=== PATIENT | male | born 1965 | race Caucasian/White ===

== ENCOUNTER 2019-02-04 15:32 | Inpatient (IN) | payer MEDICARE, MEDICAID ==
[2019-02-04] MEDS ORDERED: Albuterol/Ipratropium NEB.SOL* Albuterol 2.5 MG/Ipratropium 0.5 MG 3 ML INH ONE (15:56)
--- NOTE | 2019-02-04 16:06 | ED ---
HPI Chest Pain - HPI Summary HPI Summary: The patient is a 53 year old M presenting to [facility] accompanied by his daughter with a chief complaint of chest pain since 1500 today and is rated a 4/10. The CP started at rest and was described as tightness, the pt initially thought it was indigestion. At 1545 the CP radiated to his L side and he became SOB. He reports that he has pain with inhalation and that he has to catch his breath while talking. He denies any nausea but states that he was diaphoretic upon arrival to the ED. The pt reports no aggravating or alleviating symptoms. The pt has a Hx of COPD and emphysema which he uses home 02 for and medications. The pt states that he took all his medications today but also reported that if this was happening at home he would use a nebulizer. The pt has a Hx of ME in 2007 and stated that this felt similar to that episode. - History of Current Complaint Chief Complaint: EDChestPainROMI Time Seen by Provider: 02/04/19 15:46 Hx Obtained From: Patient Onset/Duration: Started Hours Ago - started at 1500, Still Present, Worse Since Time of Onset: 15:00 Timing: Constant, Lasting Hours - 1 Initial Severity: Mild Current Severity: Moderate Pain Intensity: 4 Pain Scale Used: 0-10 Numeric Chest Pain Location: Left Anterior Chest Pain Radiates: Yes Chest Pain Radiates To:: Other - L side Character: Dyspnea at Exertion, Dyspnea at Orthopnea, Dyspnea at Rest, Pressure/ Squeezing Aggravating Factor(s): Nothing Alleviating Factor(s): Nothing Associated Signs and Symptoms: Positive: Chest Pain - L anterior chest, radiates to the whole L side, Shortness of Breath, Diaphoresis. Negative: Nausea Related History: Similar Episode/Dx as: - Stated the feeling was similar to a ME in 2007 - Allergy/Home Medications Allergies/Adverse Reactions: Allergies Allergy/AdvReac Type Severity Reaction Status Date / Time MS Moxifloxacin [From Avelox] Allergy Severe Anaphylatic Verified 02/04/19 16:07 Shock MS Alpha Proteinase Allergy Hives/Diff. Verified 02/04/19 16:07 Inhibitor (H... Breathing/I [From Prolastin] tching Home Medications: Home Medications Albuterol 2.5MG/3ML (0.083%)* [Ventolin 2.5 MG/3 ML NEB.DAISY*] 2.5 mg INH Q6H PRN 02/04/19 [History Confirmed 02/04/19] Atorvastatin* [Lipitor*] 40 mg PO BEDTIME 02/04/19 [History Confirmed 02/04/19] Fluticasone HFA 110 mcg(NF) [Flovent HFA 110 mcg(NF)] 2 puff INH BID 02/04/19 [ History Confirmed 02/04/19] Gabapentin CAP(*) [Neurontin 100 mg CAP(*)] 200 mg PO TID 02/04/19 [History Confirmed 02/04/19] Omeprazole CAP (NF) [Prilosec CAP* 20 MG] 20 mg PO DAILY 02/04/19 [History Confirmed 02/04/19] Roflumilast (NF) [Daliresp (NF)] 500 mcg PO DAILY 02/04/19 [History Confirmed ] Tiotropium CAP.INH* [Spiriva CAP.INH*] 1 cap.inh INH DAILY 02/04/19 [History Confirmed 02/04/19] clonazePAM TAB(*) [KlonoPIN TAB(*)] 0.25 mg PO BID PRN 02/04/19 [History Confirmed 02/04/19] metroNIDAZOLE * [Flagyl] 500 mg PO TID 02/04/19 [History Confirmed 02/04/19] PMH/Surg Hx/FS Hx/Imm Hx Previously Healthy: No Endocrine/Hematology History: Reports: Hx Diabetes - borderline Respiratory History: Reports: Hx Asthma, Hx Chronic Obstructive Pulmonary Disease (COPD) - emphysemia, Other Respiratory Problems/Disorders - alpha-1 antitrypsin deficiency - Surgical History Surgery Procedure, Year, and Place: ankle surgeries Infectious Disease History: No Infectious Disease History: Reports: Hx Hepatitis - Hep C Denies: Traveled Outside the [place] in Last 30 Days - Family History Known Family History: Positive: Cardiac Disease, Respiratory Disease - asthma - Social History Alcohol Use: None Hx Substance Use: No Substance Use Type: Reports: None Hx Tobacco Use: Yes Smoking Status (MU): Former Smoker Review of Systems Positive: Skin Diaphoresis Positive: Chest Pain - L anterior that radiates to the L side Positive: Shortness Of Breath Negative: Nausea All Other Systems Reviewed And Are Negative: Yes Physical Exam - Summary Physical Exam Summary: Appearance: The patient is well-nourished in no acute distress and in no acute pain. Skin: Confluent macular popular rash on back, excoriated in places HEENT: The head is normocephalic and atraumatic. The pupils are equal and reactive. The conjunctivae are clear and without drainage. Nares are patent and without drainage. Mouth reveals moist mucous membranes and the throat is without erythema and exudate. The external ears are intact. The ear canals are patent and without drainage. The tympanic membranes are intact. Neck: The neck is supple with full range of motion and non-tender. There are no carotid bruits. There is no neck vein distension. Respiratory: Chest tender to the L anterior portion. Lungs are reduced on the R side and not present on the L side. Pt is tachypneic Cardiovascular: Heart is tachycardic. There is no murmur or rub auscultated. There is no peripheral edema and pulses are symmetrical and equal. Abdomen: The abdomen is soft and non-tender. There are normal bowel sounds heard in all four quadrants and there is no organomegaly palpated. Musculoskeletal: There is no back tenderness noted. Extremities are non-tender with full range of motion. There is good capillary refill. There is no peripheral edema or calf tenderness elicited. Neurological: Patient is alert and oriented to person, place and time. The patient has symmetrical motor strength in all four extremities. Cranial nerves are grossly intact. Deep tendon reflexes are symmetrical and equal in all four extremities. Psychiatric: The patient has an appropriate affect and does not exhibit any anxiety or depression Triage Information Reviewed: Yes Vital Signs On Initial Exam: Initial Vitals Temp Pulse Resp BP Pulse Ox 99.3 F 97 22 113/75 99 02/04/19 15:42 02/04/19 15:42 02/04/19 15:42 02/04/19 15:42 02/04/19 15:42 Vital Signs Reviewed: Yes Diagnostics - Vital Signs Vital Signs Temp Pulse Resp BP Pulse Ox 02/04/19 15:42 99.3 F 97 22 113/75 99 - Laboratory Result Diagrams: 02/04/19 15:47 02/04/19 15:47 Lab Statement: Any lab studies that have been ordered have been reviewed, and results considered in the medical decision making process. - Radiology CXR Radiology Interpretation Completed By: Radiologist Summary of Radiographic Findings: Stigmata of advanced obstructive lung disease and emphysema. No acute pulmonary or cardiac process evident. ED physician has reviewed this report. Re-Evaluation - Re-Evaluation First Eval Re-Evaluation Time: 17:30 Change: Worse Comment: Pt stated that his pain is still present at a 7/10 and is steadily increasing to an 8/10. Pt is requesting pain medication. Second Eval Re-Evaluation Time: 18:13 Change: Improved Comment: Pt reported that the medications and fluids are helping. Pain intensity is now at a 6/10. Chest Pain Course/Dx - Course Course Of Treatment: Mr. Franklin presented with the onset of an atypical chest pain that was accompanied by shortness of breath and at least partially reproducible by palpation and breathing. He admitted that if he were at home he would take some breathing treatments. He was given breathing treatments here as his breath sounds were quite decreased. He is currently stable and his initial lab were unremarkable however the lab called us and stated that they needed to run them again as there was a problem. We're waiting for initial labs and repeat troponins. - Diagnoses Provider Diagnoses: Chest pain, COPD (chronic obstructive pulmonary disease) Discharge - Sign-Out/Discharge Documenting (check all that apply): Sign-Out Patient Signing out patient TO: Julian Hebert Receiving patient FROM: Elpidio Mendoza Patient Received Moderate/Deep Sedation with Procedure: No - Discharge Plan Condition: Stable Referrals: No Primary Care Phys,NOPCP [Medical Doctor] - - Billing Disposition and Condition Condition: STABLE - Attestation Statements Document Initiated by Scribe: Yes Documenting Scribe: Jesus Flores Provider For Whom Goldie is Documenting (Include Credential): Elpidio Mendoza MD Scribe Attestation: IJesus, scribed for Elpidio Mendoza MD on 02/04/19 at 1829. Scribe Documentation Reviewed: Yes Provider Attestation: The documentation as recorded by the Jesus renner accurately reflects the service I personally performed and the decisions made by me, lEpidio Mendoza MD Status of Scribe Document: Viewed
[2019-02-04 16:15] LABS: ABS Basophils 0.1 10^3/ul (0-0.2); ABS Lymphocytes 0.3 10^3/ul (1.0-4.8); ABS Monocytes 0.2 10^3/ul (0-0.8); ABS Neutrophils 8.4 10^3/ul (1.5-7.7); Eosinophil % 0.2 %; Hematocrit 36 % (42-52); Hemoglobin 11.5 g/dL (14.0-18.0); Lymphocyte % 3.3 %; Mean Corpuscular HGB Conc 32 g/dL (31-36); Mean Corpuscular Hemoglobin 28 pg (27-31); Mean Corpuscular Volume 85 fL (80-94); Mean Platelet Volume 7.7 fL (7.4-10.4); Platelet Count 334 10^3/uL (150-450); Red Blood Count 4.18 10^6 /uL (4.18-5.48); Red Cell Distribution Width 14 % (10-15)
[2019-02-04 16:31] LABS: Albumin 3.6 g/dL (3.2-5.2); Albumin/Globulin Ratio 1.7 (1-3); BUN/Creatinine Ratio 19.4 (8-20); C Reactive Protein 1.89 mg/L (<8.01); EGFR African American 138.2 (>60); EGFR Non-African American 114.2 (>60); Globulin 2.1 g/dL (2-4); Total Bilirubin 0.3 mg/dL (0.2-1.0); Total Protein 5.7 g/dL (6.4-8.9)
[2019-02-04 16:34] LABS: INR 1.01 (0.82-1.09)
[2019-02-04 17:04] LABS: Calcium 9.8 mg/dL (8.6-10.3); Potassium 4.2 mmol/L (3.5-5.0)
[2019-02-04] MEDS ORDERED: Ketorolac INJ* 30 MG/ML 1 ML VIAL IV PUSH ONE (17:34)
[2019-02-04] MEDS ORDERED: NS 0.9% 1000 ML** 1,000 ML IV ONE ×2 (17:34→19:15)
--- NOTE | 2019-02-04 19:11 | ED ---
Progress - Progress Note Progress Note: RECEIVING SIGN OUT FROM DR. MENDOZA AT SHIFT CHANGE PENDING REPEAT LAB RESULTS. Patient is a 53 y/o M presenting to ED c/o CP onset 1500. Re-Evaluation - Re-Evaluation First Eval Re-Evaluation Time: 17:30 Change: Worse Comment: Pt stated that his pain is still present at a 7/10 and is steadily increasing to an 8/10. Pt is requesting pain medication. Second Eval Re-Evaluation Time: 18:13 Change: Improved Comment: Pt reported that the medications and fluids are helping. Pain intensity is now at a 6/10. 0 Re-Evaluation Time: 00:00 Comment: ... 1 - KD Re-Evaluation Time: 19:21 Change: Worse Comment: Patient has SOB. He is pale. Patient was offered admission and accepted. 1 Re-Evaluation Time: 19:21 Change: Worse Comment: Patient has SOB. He is pale. Patient was offered admission and accepted. Course/Dx - Course Course Of Treatment: RECEIVING SIGN OUT FROM DR. MENDOZA AT SHIFT CHANGE PENDING LAB RESULTS. Nurses note reviewed. Ill-appearing patient with wheezing history of sick COPD having chest pain with elevated lactate. Troponin 2 is negative. Patient is not well enough To go home. He was given IV steroids and an additional liter fluids. Hospitalist have consulted and will admit. - Diagnoses Provider Diagnoses: COPD exacerbation, Chest pain - Provider Notifications Discussed Care Of Patient With: Moisés Wong - hospitalist Time Discussed With Above Provider: 19:30 Instructed by Provider To: Admit As Inpatient Discharge - Sign-Out/Discharge Documenting (check all that apply): Patient Departure - ADMIT, Receiving Sign- Out Receiving patient FROM: Elpidio Mendoza - pending labs Patient Received Moderate/Deep Sedation with Procedure: No - Discharge Plan Condition: Fair Disposition: ADMITTED TO [facility] Referrals: No Primary Care Phys,NOPCP [Medical Doctor] - - Billing Disposition and Condition Condition: FAIR Disposition: Admitted to [facility] - Attestation Statements Document Initiated by Scribe: Yes Documenting Scribe: Buddy Whiteside Provider For Whom Scribe is Documenting (Include Credential): Dr. Eusebio Diaz MD Scribe Attestation: I, Buddy Whiteside, scribed for Dr. Eusebio Diaz MD on 02/04/19 at 2142. Scribe Documentation Reviewed: Yes Provider Attestation: The documentation as recorded by the scribe, Buddy Whiteside accurately reflects the service I personally performed and the decisions made by me, Dr. Eusebio Diaz MD Status of Scribe Document: Viewed
[2019-02-04] MEDS ORDERED: methylPREDNISolone 125 MG* 2 ML VIAL IV ONE (19:20)
[2019-02-04 19:52] LABS: HIV 4th Generation Negative (Negative)
[2019-02-04] MEDS ORDERED: Albuterol/Ipratropium NEB.SOL* Albuterol 2.5 MG/Ipratropium 0.5 MG 3 ML INH PRN (20:52)
[2019-02-04] MEDS ORDERED: Acetaminophen TAB* 325 MG PO PRN (20:52)
[2019-02-04] MEDS ORDERED: Albuterol HFA INHALER* 8 gm MDI INH PRN (20:57)
[2019-02-04] MEDS ORDERED: clonazePAM TAB(*) 0.5 MG PO PRN (20:57)
[2019-02-04] MEDS ORDERED: Albuterol 2.5 MG/3 ML NEB.SOL* (0.083%) INH PRN (20:57)
[2019-02-04] MEDS ORDERED: Azithromycin 500 mg/250 ml NS 500 MG/250 ML BAG IVPB ONE (21:09)
[2019-02-04] MEDS: Atorvastatin* 40 MG TAB PO SCH (22:55)
[2019-02-04] MEDS: Gabapentin CAP(*) 100 MG PO SCH (22:55)
[2019-02-04] MEDS: Heparin VIAL(*) 5000 UNITS/ML VIAL (FIVE THOUSAND) SUBCUT SCH (22:55)
[2019-02-04] MEDS: Albuterol/Ipratropium NEB.SOL* Albuterol 2.5 MG/Ipratropium 0.5 MG 3 ML INH SCH (23:15)
--- NOTE | 2019-02-05 00:44 | HP ---
Amended report to enter cosigning physician. CC: HIEN Blanco* HISTORY AND PHYSICAL: DATE OF ADMISSION: 02/04/19 PRIMARY CARE PROVIDER: HIEN Blanco in [place], [place]. OTHER PROVIDER: Dr. Greenberg, Pulmonology in [place], [place]. ATTENDING PHYSICIAN: Dr. Wong* (dictated by Mookie Nuno, KLAUS) CHIEF COMPLAINT: 1. Chest pain. 2. Shortness of breath. HISTORY OF PRESENT ILLNESS: Mr. Franklin is a 53-year-old male with a past medical history significant for COPD, emphysema, ME in 2007 with no stent, borderline diabetes, asthma; who presented to the emergency department today on 02/04/19 with complaints of chest pain that started at 1500. The patient reported he was sitting in a hot car and started to have left-sided chest pain. He described the chest pain as tightness. He reports the pain radiated to the left arm. He reports the chest pain was 6/10. He denies associated symptoms such as nausea or diaphoresis. He reports aggravating factors include inhalation. He denies alleviating factors. He reports the pain does not increase with exertion. Given these symptoms, hospitalists were asked to evaluate for admission. While in the emergency room, the patient had a chest x-ray which was consistent with stigmata of advanced obstructive lung disease and emphysema. No acute pulmonary or cardiac process evident. The patient had an EKG, which revealed sinus tachycardia with occasional PVC. No ST changes. The patient had labs, which revealed mildly elevated lactic acid at 3.8. PAST MEDICAL HISTORY: 1. COPD, on 4 L, O2 at home. 2. Emphysema. 3. ME in 2007. The patient reports he was cath'd at this time with no stent. 4. Borderline diabetes. 5. Asthma. PAST SURGICAL HISTORY: Multiple ankle surgeries. HOME MEDICATIONS: 1. Albuterol 2 puffs inhalation q.4 to 6 hours p.r.n. 2. Klonopin 0.25 mg p.o. b.i.d. p.r.n. 3. Gabapentin 200 mg p.o. t.i.d. 4. Lipitor 40 mg p.o. at bedtime. 5. Ventolin 2.5 mg inhalation q.6 hours p.r.n. 6. Omeprazole 20 mg p.o. daily. 7. Spiriva 1 cap inhalation daily 8. Roflumilast 500 mcg p.o. daily. 9. Flovent 2 puffs inhalation b.i.d. 10. Prozac 40 mg p.o. daily. ALLERGIES: The patient has allergies to AVELOX.. FAMILY HISTORY: Mom due to COPD complications. Father due to ME at age 45. SOCIAL HISTORY: The patient is a former smoker. He reports he smoked for approximately 35 years a pack a day. The patient denies alcohol use. The patient denies drug use. The patient does not work. The patient lives with his and son. The patient is independent in his ADLs. REVIEW OF SYSTEMS: A 14-point review of systems was performed and all the pertinent positive and negative findings are in the HPI. All other symptoms are negative. PHYSICAL EXAMINATION GENERAL: Mr. Franklin is a 53-year-old male who appears to be underweight, who is sitting on the ED stretcher. Appears to be in no acute distress. Appears stated age. VITAL SIGNS: Temp 97.9, HR 68, RR 17, O2 saturation 100% on 4 L, BP 117/77. HEENT: EOMs intact. PERRLA. Oral mucosa is moist without lesions. Posterior pharynx is clear. NECK: Supple. No lymphadenopathy. RESPIRATORY: Symmetrical chest expansion. No accessory muscle use. Lungs are hunudhjsia-ta-bigqoefs diminished in aeration. No rhonchi, lesions, or rubs appreciated. CV: Regular rate and rhythm. S1, S2 present. No murmurs, rubs, or gallops. EXTREMITIES: Skin is smooth bilaterally. No edema. No clubbing or cyanosis. Pedal pulses are 2+ bilaterally. MUSCULOSKELETAL: Full range of motion. No pain or deformities. ABDOMEN: Soft, nontender. Bowel sounds are normoactive. NEURO: Awake, alert, and oriented x4. Motor strength is 5/5 in the upper and lower extremities. SKIN: Grossly intact. DIAGNOSTIC STUDIES/LABORATORY DATA: WBC 9.0, hemoglobin 11.5, hematocrit 36, platelets 334. D-dimer less than 200. Sodium 140, potassium 4.2, chloride 105 , carbon dioxide 32, BUN 14, creatinine 0.72, glucose 166, lactic acid 3.8, troponin 0.00. ASSESSMENT AND PLAN: Mr. Franklin is a 53-year-old male with a past medical history significant for chronic obstructive pulmonary disease, emphysema, myocardial infarction, diabetes, asthma; who presented to the emergency department today with chest pain and was found to possibly have a chronic obstructive pulmonary disease exacerbation. The patient will be admitted to OBV : 1. Chest pain: As mentioned above, the patient presented with chest pain. The differential includes coronary artery disease/acute coronary syndrome. As for coronary artery disease/acute coronary syndrome given the patient has had 2 troponins, both of which are negative. The patient has also had an EKG, which is within normal limits. I will continue to cycle troponin to equal [address] the patient on telemetry. Differential for chest pain includes pulmonary embolism. I have a low suspicion for pulmonary embolism as the patient 's D-dimer is less than 200. Finally, the differential diagnosis of COPD exacerbation as the patient has severely decreased aeration. The patient also has elevated lactic acid at 3.8, which could be attributed to COPD induced hypoxia. Also the differential includes pneumonia. The patient's chest x-ray did not reveal any findings for pneumonia. The patient is also not febrile and not tachycardic. I will currently hold off on obtaining additional imaging or adding antibiotics to the patient's regimen unless the patient exhibits more signs or symptoms of pneumonia. Finally, I am also concerned for possible lung malignancy. The patient has a smoking history. The patient reports unexplained weight loss of greater than 11 pounds in 1 month. Once again I am going to hold off on ordering any more detailed imaging at this time given the current possible chronic obstructive pulmonary disease exacerbation, but I will have a low threshold for ordering a CT. 2. Chronic obstructive pulmonary disease exacerbation: The patient will be placed on telemetry. The patient will be provided with 4 L of oxygen, which is his home rate. The patient will receive IV steroids. The patient will receive DuoNebs while he is awake. I will continue the patient's home inhalers with the exception of the Spiriva and Flovent as he is receiving IV steroids and he will be receiving DuoNebs [id number] while awake. 3. History of myocardial infarction in 2007/coronary artery disease: As mentioned above, the patient has a history of myocardial infarction in 2007 with no stents. I will continue the patient's Lipitor. I have ordered lipids to be drawn in the morning. I have also ordered a TSH and hemoglobin A1c. 4. Anxiety and depression: The patient is on medications for anxiety and depression. I will continue his Prozac and clonazepam. 5. Clostridium difficile: The patient reports he was recently diagnosed with a colon infection and I seen on OCT that he was on Flagyl 500 mg p.o. t.i.d. He reports he completed this antibiotic course yesterday. The patient denies diarrhea at this time. I will not order a stool culture or continue antibiotic as he completed that, but I would have a low threshold for doing so if this patient develops diarrhea. 6. FEN: The patient will be placed on a heart-healthy diet. 7. Code status: The patient is a full code. 8. DVT prophylaxis. Based on DVT Risk Assessment, the patient is high risk. I will order subcu heparin. TIME SPENT: Approximately 65 minutes was spent on this admission, greater than half the time was spent with the patient and caregiver obtaining my history, performing physical exam, and reviewing my plan of care. This case has been reviewed with my attending, Dr. Wong, who is in agreement with my plan of care. Reviewed by MOOKIE NUNO NP 02/05/191917 [id number]/CPS #: [id number] MTDBeth
[2019-02-05] MEDS: Albuterol/Ipratropium NEB.SOL* Albuterol 2.5 MG/Ipratropium 0.5 MG 3 ML INH SCH ×4 (03:15→19:16)
[2019-02-05] MEDS: methylPREDNISolone SOD 40 MG* 1 ML VIAL IV SCH ×2 (05:26→13:48)
[2019-02-05 06:04] LABS: ABS Lymphocytes 0.5 10^3/ul (1.0-4.8); ABS Monocytes 0.3 10^3/ul (0-0.8); ABS Neutrophils 6.9 10^3/ul (1.5-7.7); Hematocrit 30 % (42-52); Lymphocyte % 6.5 %; Mean Corpuscular HGB Conc 33 g/dL (31-36); Mean Corpuscular Hemoglobin 28 pg (27-31); Mean Corpuscular Volume 85 fL (80-94); Mean Platelet Volume 7.5 fL (7.4-10.4); Platelet Count 268 10^3/uL (150-450); Red Blood Count 3.54 10^6 /uL (4.18-5.48); Red Cell Distribution Width 15 % (10-15); White Blood Count 7.7 10^3/uL (3.5-10.8)
[2019-02-05 06:22] LABS: Albumin 3.5 g/dL (3.2-5.2); Albumin/Globulin Ratio 1.9 (1-3); BUN/Creatinine Ratio 14.9 (8-20); Calcium 8.7 mg/dL (8.6-10.3); EGFR African American 111.1 (>60); EGFR Non-African American 91.8 (>60); Globulin 1.8 g/dL (2-4); Potassium 4.1 mmol/L (3.5-5.0); Total Bilirubin 0.2 mg/dL (0.2-1.0); Total Protein 5.3 g/dL (6.4-8.9)
[2019-02-05 06:41] LABS: TSH (Thyroid Stimulating Horm) 0.53 mcIU/mL (0.34-5.60)
[2019-02-05] MEDS: Tiotropium CAP.INH* CAP.INH/18 MCG (USE ORDER SET !) INH SCH (08:08)
[2019-02-05] MEDS: ROFLUMILAST 500 MCG PO SCH (08:29)
[2019-02-05] MEDS: FLUoxetine CAP* 20 MG PO SCH (08:29)
[2019-02-05] MEDS: Gabapentin CAP(*) 100 MG PO SCH ×3 (08:30→22:23)
[2019-02-05] MEDS: Pantoprazole TAB * 40 MG TAB PO SCH (08:30)
[2019-02-05] MEDS: Heparin VIAL(*) 5000 UNITS/ML VIAL (FIVE THOUSAND) SUBCUT SCH ×2 (08:30→22:23)
[2019-02-05] MEDS ORDERED: Spiriva Inhaler DEVICE* 1 EACH DEVICE INH ONE (09:00)
--- NOTE | 2019-02-05 12:32 | PN ---
Subjective Date of Service: 02/05/19 Interval History: Mr. Guzman denies pain today. He is amenable to staying till Thursday for a stress test as he realizes that he is high risk for cardiac disease given his history. Objective Active Medications: Acetaminophen (Tylenol Tab*) 650 mg PO Q4H PRN Albuterol (Ventolin 2.5 Mg/3 Ml Neb.Malaika*) 2.5 mg INH Q6H PRN Albuterol (Ventolin Hfa Inhaler*) 2 puff INH Q4H PRN Albuterol/Ipratropium (Duoneb (Albuterol 2.5 Mg/Ipratropium 0.5 Mg)) 1 neb INH [id number] AWAKE KERRY Atorvastatin Calcium (Lipitor*) 40 mg PO BEDTIME KERRY Clonazepam (Klonopin Tab(*)) 0.25 mg PO BID PRN Fluoxetine HCl (Prozac Cap*) 40 mg PO DAILY KERRY Gabapentin (Neurontin Cap(*)) 200 mg PO TID KERRY Heparin Sodium (Porcine) (Heparin Vial(*)) 5,000 units SUBCUT Q12HR KERRY Methylprednisolone Sodium Succinate (Solu-Medrol 40 Mg) 40 mg IV Q8H KERRY Pantoprazole Sodium (Protonix Tab*) 40 mg PO DAILY KERRY Roflumilast (Daliresp (Nf)) 500 mcg PO DAILY KERRY Tiotropium [place] (Spiriva Cap.Inh*) 1 cap INH DAILY KERRY Vital Signs: Temp Pulse Resp BP Pulse Ox 98.3 F 80 16 98/54 99 02/05/19 11:59 02/05/19 11:59 02/05/19 11:59 02/05/19 11:59 02/05/19 11:59 Oxygen Devices in Use Now: Nasal Cannula Appearance: Male lying in bed in NAD Eyes: No Scleral Icterus Ears/Nose/Mouth/Throat: Mucous Membranes Moist Neck: Trachea Midline Respiratory: Symmetrical Chest Expansion and Respiratory Effort, Clear to Auscultation Cardiovascular: NL Sounds; No Murmurs; No JVD, No Edema Abdominal: NL Sounds; No Tenderness; No Distention Extremities: No Edema Skin: No Rash or Ulcers Neurological: Alert and Oriented x 3, NL Muscle Strength and Tone Nutrition: Taking PO's Result Diagrams: 02/05/19 05:42 02/05/19 05:42 Assess/Plan/Problems-Billing Assessment: Mr. Franklin is a 53 yo M with a PMH of COPD who was admitted on 02/03/19 with chest pain and SOB with concern for acute coronary syndrome. - Patient Problems (1) Chest pain Comment: - Troponin 0.00 x 3, no evidence of ischemia on EKG - Hx of MT with stent - Plan for nuc med stress test on Thursday (2) COPD exacerbation Comment: - Lactic acidosis resolved. Currently on 4L NC, at baseline. - Switch to short course of prednisone - Continue nebs and MDI, continue daliresp (3) Hyperlipidemia Comment: - Continue atorvastatin (4) Depression Comment: - With anxiety - Continue fluoxetine and clonazepam (5) DVT prophylaxis Comment: - Heparin SQ (6) Full code status Comment: Status and Disposition: OBV. Plan for stress test Thursday.
[2019-02-05] MEDS ORDERED: Azithromycin IV(*) 250 MG in NS 0.9% 250 ML* 250 ML IVPB SCH (22:00)
[2019-02-05] MEDS: Atorvastatin* 40 MG TAB PO SCH (22:23)
[2019-02-06] MEDS: Albuterol/Ipratropium NEB.SOL* Albuterol 2.5 MG/Ipratropium 0.5 MG 3 ML INH SCH ×4 (01:08→19:27)
[2019-02-06] MEDS: Gabapentin CAP(*) 100 MG PO SCH ×3 (07:47→21:44)
[2019-02-06] MEDS: predniSONE TAB* 20 MG PO SCH (07:47)
[2019-02-06] MEDS: Heparin VIAL(*) 5000 UNITS/ML VIAL (FIVE THOUSAND) SUBCUT SCH ×2 (07:47→21:46)
[2019-02-06] MEDS: FLUoxetine CAP* 20 MG PO SCH (07:47)
[2019-02-06] MEDS: Pantoprazole TAB * 40 MG TAB PO SCH (07:48)
[2019-02-06] MEDS: Tiotropium CAP.INH* CAP.INH/18 MCG (USE ORDER SET !) INH SCH (07:50)
[2019-02-06] MEDS: ROFLUMILAST 500 MCG PO SCH (08:21)
[2019-02-06] MEDS: Atorvastatin* 40 MG TAB PO SCH (21:46)
[2019-02-07] MEDS: Albuterol/Ipratropium NEB.SOL* Albuterol 2.5 MG/Ipratropium 0.5 MG 3 ML INH SCH ×4 (01:07→19:34)
[2019-02-07] MEDS: Tiotropium CAP.INH* CAP.INH/18 MCG (USE ORDER SET !) INH SCH (07:08)
[2019-02-07] MEDS: Gabapentin CAP(*) 100 MG PO SCH ×2 (08:25→12:14)
[2019-02-07] MEDS: FLUoxetine CAP* 20 MG PO SCH (08:25)
[2019-02-07] MEDS: ROFLUMILAST 500 MCG PO SCH (08:36)
[2019-02-07] MEDS: predniSONE TAB* 20 MG PO SCH (08:36)
[2019-02-07] MEDS: Pantoprazole TAB * 40 MG TAB PO SCH (08:36)
[2019-02-07] MEDS: Heparin VIAL(*) 5000 UNITS/ML VIAL (FIVE THOUSAND) SUBCUT SCH (08:36)
--- NOTE | 2019-02-07 08:56 | PN ---
Subjective Date of Service: 02/06/19 Interval History: Mr. Franklin denies complaint. He has had no further chest pain since arrival. He denies shortness of breath. Objective Active Medications: Acetaminophen (Tylenol Tab*) 650 mg PO Q4H PRN PRN Reason: FEVER/PAIN Albuterol (Ventolin 2.5 Mg/3 Ml Neb.Malaika*) 2.5 mg INH Q6H PRN PRN Reason: SHORTNESS OF BREATH Albuterol (Ventolin Hfa Inhaler*) 2 puff INH Q4H PRN PRN Reason: SHORTNESS OF BREATH Albuterol/Ipratropium (Duoneb (Albuterol 2.5 Mg/Ipratropium 0.5 Mg)) 1 neb INH [id number] AWAKE [facility] Last Admin: 02/07/19 07:08 Dose: 1 neb Atorvastatin Calcium (Lipitor*) 40 mg PO BEDTIME [facility] Last Admin: 02/06/19 21:46 Dose: 40 mg Clonazepam (Klonopin Tab(*)) 0.25 mg PO BID PRN PRN Reason: ANXIETY Fluoxetine HCl (Prozac Cap*) 40 mg PO DAILY [facility] Last Admin: 02/07/19 08:25 Dose: Not Given Gabapentin (Neurontin Cap(*)) 200 mg PO TID [facility] Last Admin: 02/07/19 08:25 Dose: Not Given Heparin Sodium (Porcine) (Heparin Vial(*)) 5,000 units SUBCUT Q12HR [facility] Last Admin: 02/07/19 08:36 Dose: 5,000 units Pantoprazole Sodium (Protonix Tab*) 40 mg PO DAILY [facility] Last Admin: 02/07/19 08:36 Dose: Not Given Prednisone (Deltasone Tab*) 40 mg PO DAILY [facility] Last Admin: 02/07/19 08:36 Dose: Not Given Roflumilast (Daliresp (Nf)) 500 mcg PO DAILY [facility] Last Admin: 02/07/19 08:36 Dose: Not Given Tiotropium Lane (Spiriva Cap.Inh*) 1 cap INH DAILY [facility] Last Admin: 02/07/19 07:08 Dose: 1 cap Vital Signs - 8 hr 02/07/19 02/07/19 02/07/19 01:08 03:19 07:12 Temperature 97.1 F Pulse Rate 83 63 74 Respiratory 16 16 17 Rate Blood Pressure 103/72 (mmHg) O2 Sat by Pulse 99 100 99 Oximetry Oxygen Devices in Use Now: Nasal Cannula Appearance: Male lying in bed in NAD Eyes: No Scleral Icterus Ears/Nose/Mouth/Throat: Mucous Membranes Moist Neck: Trachea Midline Respiratory: Symmetrical Chest Expansion and Respiratory Effort, Clear to Auscultation Cardiovascular: NL Sounds; No Murmurs; No JVD, No Edema Abdominal: NL Sounds; No Tenderness; No Distention Extremities: No Edema Skin: No Rash or Ulcers Neurological: Alert and Oriented x 3, NL Muscle Strength and Tone Result Diagrams: 02/05/19 05:42 02/05/19 05:42 Assess/Plan/Problems-Billing Assessment: Mr. Franklin is a 53 yo M with a PMH of COPD who was admitted on 02/03/19 with chest pain and SOB with concern for acute coronary syndrome. - Patient Problems (1) Chest pain Comment: - Troponin 0.00 x 3, no evidence of ischemia on EKG - Hx of AL with stent - Plan for nuc med stress test on Thursday (2) COPD exacerbation Comment: - Lactic acidosis resolved. Currently on 4L NC, at baseline. - Switch to short course of prednisone - Continue nebs and MDI, continue daliresp (3) Hyperlipidemia Comment: - Continue atorvastatin (4) Depression Comment: - With anxiety - Continue fluoxetine and clonazepam (5) DVT prophylaxis Comment: - Heparin SQ (6) Full code status Comment: Status and Disposition: OBV. Plan for stress test Thursday.
[2019-02-07] MEDS ORDERED: Regadenoson* 0.4 MG/5 ML SYRINGE ONE (14:09)
[2019-02-07 15:30] VITALS: BP 123/71
--- NOTE | 2019-02-07 21:08 | DS ---
CC: HIEN Vega; Dr. Kyree Greenberg * DISCHARGE SUMMARY: DATE OF ADMISSION: 02/04/19 DATE OF DISCHARGE: 02/07/19 PRIMARY CARE PROVIDER: HIEN Vega WOOD TREATING INSPECTOR: Dr. Kyree Greenberg in [place], [place]. ATTENDING PHYSICIAN: Dr. Sherice Manzano * (dictated by Nikki Bearden NP). PRIMARY DIAGNOSES: 1. Chronic obstructive pulmonary disease exacerbation. 2. Chest pain. SECONDARY DIAGNOSES: 1. Hyperlipidemia. 2. Depression. STUDIES WHILE IN THE HOSPITAL: 1. EKG on 02/04/19 shows sinus tachycardia with a rate of 103, QTc 439. This EKG is consistent with previous EKG on file at the facility. 2. Chest x-ray on 02/04/19 shows stigmata of advanced obstructive lung disease and emphysema. No acute pulmonary or cardiac process evident. 3. Nuclear stress test on 02/04/19 reads as small to moderate area of photopenia in the anterior wall close to the apex consistent with reversible change. Ejection fraction of 55%. Wall motion is unremarkable. Assessment is low risk. HISTORY OF PRESENT ILLNESS AND HOSPITAL COURSE: Mr. Franklin is a 53-year-old male with past medical history of advanced COPD; chronic hypoxic respiratory failure, on 4 L; coronary artery disease with [place] in 2007; and asthma who presented to the emergency room on 02/04/19 with complaints of chest pain and shortness of breath. Please see the history and physical by Lillian Saleh NP , for complete summary of the events leading up to this hospitalization. In short, the patient has chest pain that started on the day of admission. He reports that he was sitting in a hot car at the onset of the pain and described the pain as tightness. He additionally developed shortness of breath. In the emergency room, the patient had imaging as noted above. He had labs which were remarkable for an elevated lactic at 3.8 and a negative troponin. Due to the concern for COPD exacerbation and chest pain, the patient was admitted by the hospitalist service. Lactic acidosis resolved with IV fluids. The patient was started on prednisone for his COPD exacerbation. He was not started on any antibiotics. Chest pain did resolve without intervention. The patient had 2 additional negative troponins and there were no EKG changes. He did not require any additional oxygen. During this hospitalization, he was able to maintain saturations on his typical 4 L. Shortness of breath resolved. The patient has been up ambulating without difficulty. He was agreeable to stay through the weekend for a stress test due to his cardiac history. The patient did have a stress test this morning with results noted above. There were some areas of reversible change, though the stress test ultimately was low risk. The patient does see a economic forecaster. He is anxious to return home today. On exam, the patient has no focal neurological deficits. Lungs are diminished to auscultation without rhonchi, wheezes, rales, or rubs. Heart has a regular rate and rhythm without murmurs, rubs, or gallops. There is no edema. His physical assessment is otherwise benign. Mr. Franklin is stable for discharge today. Vital signs are as follows: Temp 97.7, heart rate 68, respiratory rate 15, oxygen saturation 94% on 4 L, blood pressure 123/71. DISCHARGE MEDICATIONS: New medications: Prednisone 10 mg tab taper (take 3 tabs for 2 days, then 2 tabs for 2 days, 1 tab for 2 days). Continued medications: 1. Albuterol 2.5 mg/3 mL 1 neb q.6 hours p.r.n. shortness of breath. 2. Albuterol MDI 2 puffs q.4 hours p.r.n. shortness of breath. 3. Atorvastatin 40 mg p.o. at bedtime. 4. Clonazepam 0.25 mg p.o. b.i.d. p.r.n. anxiety. 5. Fluoxetine 40 mg p.o. daily. 6. Gabapentin 200 mg p.o. t.i.d. 7. Omeprazole 20 mg p.o. daily. 8. Roflumilast 500 mcg p.o. daily. 9. Spiriva 1 cap inhalation daily. 10. Fluticasone MDI 2 puffs b.i.d. DISCHARGE PLAN: Mr. Franklin will be discharged home. Activity will be as tolerated. Diet will be regular as tolerated. He should continue to use his baseline 4 L of oxygen at all times. Medications are noted above. I have prescribed the patient a short prednisone taper. There is no indication for antibiotics at this point and he seems to be recovering well on only prednisone , so I will continue this. He can continue his other usual medications as noted above and I have not made any further changes. The patient should follow up with his primary care provider in 4 to 7 days and should follow up with his clinical product specialist as needed. I have advised the patient that he should speak with his primary care provider about a possible cardiology referral due to his cardiac history and the small reversible changes noted on stress test. The patient has been advised to return to the emergency room or nearest hospital for any worsening of symptoms, shortness of breath, lightheadedness, dizziness, chest discomfort, high fevers, chills, night sweats, loss of consciousness, or any other worrisome signs or symptoms. DISCHARGE CONDITION: Stable. DISCHARGE DISPOSITION: Home. This is a summarized report of a complex medical history and hospital stay. For further details, please see the entire medical record. TIME SPENT: Approximately 45 minutes was spent on this discharge. NIKKI BEARDEN NP [id number]/[facility] #: [id number] EUGEN[place]
== END 2019-02-07 19:25 | disposition home or self-care (01) | DRG 191 ==
LOC: ED 15:32 → MED 20:52 → OBSVTOIN 02-06 10:27
PROVIDERS: ADMIT Internal Medicine; ATTEND Internal Medicine
DX: J44.1 Chronic obstructive pulmonary disease with (acute) exacerbation (principal); Z68.1 Body mass index [BMI] 19.9 or less, adult; Z99.81 Dependence on supplemental oxygen; R07.9 Chest pain, unspecified; E78.5 Hyperlipidemia, unspecified; R73.03 Prediabetes; R63.6 Underweight; I25.2 Old myocardial infarction; Z79.51 Long term (current) use of inhaled steroids; Z79.899 Other long term (current) drug therapy; Z88.8 Allergy status to other drugs, medicaments and biological substances; Z82.5 Family history of asthma and other chronic lower respiratory diseases; Z82.49 Family history of ischemic heart disease and other diseases of the circulatory system; Z87.891 Personal history of nicotine dependence
CPT/HCPCS: 36415; 71045; 78452; 80053; 80061; 83605; 83880; 84443; 84484; 85025; 85379; 85610; 86140; 87389; 93005; 93017; 94640; 99283; A9270-GY; A9502; G0378; J1644; J1885; J2785; J2920; J2930; J7512

== ENCOUNTER 2019-09-02 17:39 | Inpatient (IN) | payer MEDICARE, MEDICAID ==
--- OUTSIDE RECORDS SUMMARY | 2019-09-02 20:06 | XMS REPORT | Continuity of Care Document ---
:1965 Author Name Lisw, System Address Unavailable Unavailable , Care Team Providers Name Role Phone Mayank EDMOND-C, Dain Unavailable Mayank EDMOND-C, Dain Unavailable Yari VERA, Kyree Unavailable Sahra VERA, Jerry Unavailable GABINO COWART MD Unavailable Defuria Msn Npc, Blanka Landin Unavailable Demarcus CHIEF OPERATING OFFICER, Nikki Unavailable Unavailable HeSujit rodarte Unavailable Unavailable Callejas PHYSICIAN EXTENDER, Urszula Unavailable Unavailable More LRT, Gary Unavailable Unavailable Bah PHYSICIAN EXTENDER, Irlanda Unavailable Unavailable Slowik CHIEF OPERATING OFFICER, Jean Carlos Unavailable Unavailable Slowik PHYSICIAN EXTENDER, Devorah Unavailable Unavailable ADMIN ASSISTANT Preload, ADMIN ASSISTANT Unavailable Unavailable Alonzo Greene Unavailable Unavailable Beaudin PHYSICIAN EXTENDER, Lexa Unavailable Unavailable Unavailable Unavailable Problems [id number] DEFICIENCY (Renamed from AAT ([id number]) DEFICIENCY) (E88.01) (273.4) MD Kyree Mackenzie Comments: MZ PHENOTYPE. ON Prognosis: on replacement. tharapy. as of 30-Jun-2019 ARALAST WEEKLY COPD (CHRONIC OBSTRUCTIVE PULMONARY DISEASE) (J44.9) (496) MD Kyree Mackenzie Prognosis: stable. continue the medications.discussed abour the lung transplant, and patient willing to do it at [place]. need to refer to [place] for lung transplantation eval. as of 30-Jun-2019 EMPHYSEMA (J43.9) (492.8) MD Kyree Mackenzie GERD (GASTROESOPHAGEAL REFLUX DISEASE) (K21.9) (530.81) MD Kyree Mackenzie HYPERLIPIDEMIA (Renamed from HLD (HYPERLIPIDEMIA)) (E78.5) (272.4) MD Kyree Mackenzie HYPOXEMIA (R09.02) (799.02) MD Kyree Mackenzie Prognosis: continue the O2 as prescribed. as of 30-Jun-2019 INFLUENZA VACCINE NEEDED (Z23) (V04.81) MD Kyree Mackenzie OSTEOPOROSIS (Renamed from OP (OSTEOPOROSIS)) (M81.0) (733.00) MD Kyree Mackenzie RESPIRATORY FAILURE, CHRONIC (J96.10) (518.83) MD yKree Mackenzie Prognosis: on trilogy at night. as of 30-Jun-2019 WEIGHT LOSS, UNINTENTIONAL (R63.4) (783.21) MD Kyree Mackenzie Prognosis: He reports he eats 3 meals and takes Ensure 2 times/day. He is working with his primary on this. We have recommended he hold Daliresp and see if this helps as of 30-Jun-2019 Allergies and Adverse Reactions Avelox *FLUOROQUINOLONES* (Allergy) Reaction: Hives Prolastin-C *RESPIRATORY AGENTS - MISC.* (Allergy) Onset: 11-Jun-2012 Reaction: Difficulty breathing, Shortness of breath Medications ALBUTEROL SULFATE, (2.5 MG/3ML)0.083% (Inhalation Nebulization Solution); uad qid prn ((2.5 MG/3ML) 0.083%) Aralast ADMIN ASSISTANT 1000 MG Intravenous Solution Reconstituted; 1 (one) Milligram once a week for 30 days Ordered: 11-Nov-2018 Start: 11-Nov-2018 Quantity: 1 {Unspecified} MD Kyree Mackenzie Refills: 0 ASPIRIN, 325MG (Oral Tablet); 1 (one) daily (325 MG) CLONAZEPAM, 0.5MG (Oral Tablet Comments: Medication taken as Dispersible); 1 two times needed. daily, as needed (0.5 MG) DALIRESP, 500 mcg (Oral Tablet) (Free Text); 1 daily (500 mcg) Flovent HFA 110 MCG/ACT Inhalation Aerosol; 2 two times daily (110 MCG/ACT) FLUoxetine HCl 40 MG Oral Capsule; 1 daily (40 MG) Gabapentin 100 MG Oral Capsule; 2 three times daily (100 MG) LIPITOR, 20MG (Oral Tablet); 1 daily (20 MG) LISINOPRIL, 20MG (Oral Tablet); 1 daily (20 MG) OXYGEN (Inhalation Gas) (Free Text); 4L PORTABLE CONCENTRATOR ( Device) (Free Text); 1 (one) Device Device UAD for 0 days Ordered: 01-Oct-2017 Start: 01-Oct-2017 Quantity: 1 Kit Torito Msn Npc, Blanka Landin Refills: 0 PRILOSEC, 20MG (Oral Capsule Delayed Release); 1 daily (20 MG) SPIRIVA HANDIHALER, 18MCG (Inhalation Capsule); 1 daily (18 MCG) Trilogy NIPPV; UAD VENTOLIN HFA, 108 (90 Comments: Medication taken as Base)MCG/ACT (Inhalation needed. Aerosol Solution); 2 four times daily, as needed (108 (90 Base) MCG/ACT) ADVAIR DISKUS, 500-50MCG/DOSE Status: Inactive (Inhalation Aerosol Powder Breath Activated); 1 two times daily (500-50 MCG/DOSE) DALIRESP, 500MCG (Oral Tablet); 1 Tablet daily for 30 days Ordered: 2014 Start: 31-Jan-2015 End: 02-Mar-2015 Quantity: 30 {Tablet} Torito Msn NpcBlanka Status: Inactive Refills: 0 Comments: Needs appt FOSAMAX, 35MG (Oral Tablet); 1 Status: Inactive weekly (35 MG) OMEPRAZOLE, 20MG (Oral Capsule Status: Inactive Delayed Release); 1 daily (20 MG) OXYGEN (Inhalation Gas) (Free End: 22-Dec-2012 Text); 2.5L continuous Status: Inactive Comments: has not been using OXYGEN SUPPLIES ( Kit) (Free Text); Kit as ordered for 0 days Ordered: Start: 08-Jun-2012 End: 22-Dec-2012 Quantity: 1 Kit Status: Inactive Refills: 0 Perforomist 20 MCG/2ML Inhalation Nebulization Solution; 1 (one) Nebulized Soln Nebulized Soln two times daily for 30 days Ordered: 01-Oct-2017 Start: Jul-2015 End: 01-Oct-2017 Quantity: 60 {Nebule} Beaudin, PHYSICIAN EXTENDER Lexa Status: Inactive Refills: 4 Potassium Chloride; 1 daily Status: Inactive POTASSIUM CHLORIDE, 10MEQ (Oral Status: Inactive Tablet Extended Release); daily (10 MEQ) PredniSONE 2.5 MG Oral Tablet; 1 Tablet daily for 30 days Ordered: 2017 Start: 27-Jun-2013 End: 01-Oct-2017 Quantity: 30 {Tablet(s)} Beaudin, PHYSICIAN EXTENDER Lexa Status: Inactive Refills: 5 PREDNISONE, 1MG (Oral Tablet); Status: Inactive 1 daily (1 MG) PREDNISONE, 1MG (Oral Tablet); 1 Tablet daily for 7 days Ordered: 05-Jan-2013 Start: 22-Dec-2012 End: 29-Dec-2012 Quantity: 7 {Tablet} Defuria Msn NpcBlanka Status: Inactive Refills: 0 Comments: WILL CONTINUE FOR ONE MORE WEEK AND DISCONTINUE TAMSULOSIN HCL, 0.4MG (Oral Status: Inactive Capsule); 1 daily (0.4 MG) THEOPHYLLINE CR, 300MG (Oral Status: Inactive Tablet Extended Release 12 Hour); 1 daily (300 MG) ASPIRIN EC LOW STRENGTH, 81MG End: 12-Feb-2015 (Oral Tablet Delayed Release); Status: Discontinued 1 daily (81 MG) KELLY-24, 100MG (Oral Capsule Extended Release 24 Hour); 1 (one) Capsule ER 24HR daily for 90 days Ordered: 22-Dec-2012 Start: 22-Dec-2012 End: 2012 Quantity: 90 {Capsule_ER_24HR} Defuria Msn NpcBlanka Status: Discontinued Refills: 3 KELLY-24, 100MG (Oral Capsule Extended Release 24 Hour); 1 (one) Capsule ER 24HR daily for 30 days Ordered: 22-Dec-2012 Start: 22-Dec-2012 End: 2012 Quantity: 30 {Capsule_ER_24HR} Defuria Msn NpcBlanka Status: Discontinued Refills: 5 Procedures DLCO (CARBON MONOXIDE DIFFUSING Status: Completed 30-Jun-2019 CAPACITY) (90791) THORACIC GAS VOLUME: AIRWAY Status: Completed 30-Jun-2019 CLOSING VOLUME MEASUREMENT: PULM FUNCTION TEST BY GAS (51772) TOTAL VITAL CAPACITY (20271) Status: Completed 30-Jun-2019 AIRFLOW RESISTANCE MEASUREMENT: Status: Completed 30-Jun-2019 PULM FUNCT TEST OSCILLOMETRY (58955) PRE AND POST W/ RT (92470) Status: Completed 09-Mar-2019 RESPIRATORY FLOW VOLUME LOOP Status: Completed 01-Oct-2017 (32267) PRE AND POST W/ RT (85331) Status: Completed 01-Oct-2017 RESPIRATORY FLOW VOLUME LOOP Status: Completed 22-Feb-2016 (60709) PRE AND POST W/ RT (23832) Status: Completed 22-Feb-2016 REST/EXERCISE OXIMETRY (95818) Status: Completed 20-Jul-2015 AIRFLOW RESISTANCE MEASUREMENT: Status: Completed 20-Jul-2015 PULM FUNCT TEST OSCILLOMETRY (83590) TOTAL VITAL CAPACITY (14183) Status: Completed 20-Jul-2015 TOTAL BODY PLETHYSMOGRAPHY: AIRWAY Status: Completed 20-Jul-2015 CLOSING VOLUME MEASUREMENT: PULM FUNCT TST PLETHYSMOGRAP (14200) RESPIRATORY FLOW VOLUME LOOP Status: Completed 20-Jul-2015 (08811) THORACIC GAS VOLUME: AIRWAY Status: Completed 20-Jul-2015 CLOSING VOLUME MEASUREMENT: PULM FUNCTION TEST BY GAS (93596) DLCO (CARBON MONOXIDE DIFFUSING Status: Completed 20-Jul-2015 CAPACITY) (10451) PRE AND POST (56255) Status: Completed 20-Jul-2015 RESPIRATORY FLOW VOLUME LOOP Status: Completed 12-Feb-2015 (80092) THORACIC GAS VOLUME: AIRWAY Status: Completed 04-Jan-2014 CLOSING VOLUME MEASUREMENT: PULM FUNCTION TEST BY GAS (31645) AIRFLOW RESISTANCE MEASUREMENT: Status: Completed 04-Jan-2014 PULM FUNCT TEST OSCILLOMETRY (10687) PRE AND POST (55875) Status: Completed 04-Jan-2014 TOTAL BODY PLETHYSMOGRAPHY: AIRWAY Status: Completed 04-Jan-2014 CLOSING VOLUME MEASUREMENT: PULM FUNCT TST PLETHYSMOGRAP (68046) RESPIRATORY FLOW VOLUME LOOP Status: Completed 04-Jan-2014 (56265) TOTAL VITAL CAPACITY (40070) Status: Completed 04-Jan-2014 DLCO (CARBON MONOXIDE DIFFUSING Status: Completed 04-Jan-2014 CAPACITY) (32203) ADMINISTRATION OF INFLUENZA Date: 27-Jun-2013 Status: Cancelled VACCINE TO PATIENTS 3 YEARS AND OLDER: FLU VACCINE 3 YRS & > IM (64360) MEDICARE CODE: ADMIN INFLUENZA Status: Completed 27-Jun-2013 VIRUS VAC: ADMIN INFLUENZA VIRUS VAC (G0008) PRE AND POST (39020) Status: Completed 27-Jun-2013 RESPIRATORY FLOW VOLUME LOOP Status: Completed 27-Jun-2013 (75121) SPIROMETRY WITH BRONCHODILATOR Status: Completed 22-Dec-2012 (48646) RESPIRATORY FLOW VOLUME LOOP Status: Completed 16-Jun-2012 (82210) SPIROMETRY WITH BRONCHODILATOR W/ Status: Completed 16-Jun-2012 RT (96296) PRE AND POST (98258) Status: Completed 08-Jun-2012 PRE/POST W/ RT (60334) Status: Completed 02-Feb-2012 VITAL CAPACITY TEST (41631) Status: Completed 30-Sep-2011 ANKLE SURGERY Status: Completed Comments: Left. Right. AFTER A FALL AND FRACTURE Appendectomy Status: Completed 24-Jul-2018 Catheterization, Left Heart-Skin Status: Completed Dec-2014 Chest X-ray Status: Completed Comments: Referred for follow up. NAD Chest X-ray Status: Completed 22-Dec-2012 Comments: REVIEWED WITH NO ACUTE FINDINGS. official interpretation and comparison by the radiologist is pending. Chest X-ray Status: Completed 04-Jan-2014 Comments: reviewed with no acute findings. official interpretation and comparison by the radiologist is pending. Chest X-ray Status: Completed 09-Mar-2019 Comments: reviewed with no acute findings. official interpretation and comparison by the radiologist is pending. CT Scan of Chest Status: Completed Comments: Referred for follow up. emphysema. bronchiectasis. Flu Vaccine Status: Completed 31-May-2018 Comments: 05/2019 Flu Vaccine Status: Completed 31-May-2017 Comments: hospital PFT Status: Completed 09-Mar-2019 Comments: Severe Obstruction. flow rates have improved compared to 10/01/17 PFT Status: Completed 12-Feb-2015 Comments: Severe Obstruction. PFT Status: Completed 04-Jan-2014 Comments: Severe Obstruction. Air Trapping. Moderate Diffusion Defect. Severe Diffusion Defect. stable compared to 06/27/13 PFT Status: Completed Comments: Severe Obstruction. stage iv PFT Status: Completed 22-Dec-2012 Comments: Severe Obstruction. STABLE COMPARED TO 06/16/12 PFTs Status: Completed Comments: Severe Obstruction. Pneumovax Status: Completed 2012 CAT SCAN OF CHEST: CT THORAX W/O DYE (99614)Result: Status: Completed 2018 Are you or could you become ?: No; When was you last CXR/CT?: over week ago; Lithograph Printer: SUGEY Nino PRE AND POST ([id number])Result: Hemoptysis: No Status: Completed 30-Jun-2019 CXR PA & LAT (71099)Result: Are you or could Status: Completed Feb-2019 you become ?: No; When was you last CXR/CT?: over week ago; Lithograph Printer: SUGEY Nino CHEST X-RAY, PA AND LATERAL ([id number])Result: Are you Status: Completed 2017 or could you become ?: No; When was you last CXR/CT?: over week ago; Lithograph Printer: SUGEY Nino CAT SCAN OF CHEST: CT THORAX W/O DYE (32617)Result: Status: Completed 2014 Are you or could you become ?: No; When was you last CXR/CT?: over a week ago; Lithograph Printer: SUGEY Nino PRE AND POST ([id number])Result: Hemoptysis: No Status: Completed 12-Feb-2015 CHEST X-RAY, PA AND LATERAL ([id number])Result: Are you Status: Completed 2012 or could you become ?: No; Lithograph Printer: SUGEY Nino CHEST X-RAY, PA AND LATERAL ([id number])Result: Are you Status: Completed 2011 or could you become ?: No; Lithograph Printer: Alonzo Greene CHEST X-RAY ([id number]) PA & LResult: Are you or Date: 02-Feb-2012 could you become ?: N/A; Lithograph Printer: Sujit Gardner Immunizations Influenza (3 years and up) On: 04-Jun-2012 Comments:given at PCP Influenza (3 years and up) On: 27-Jun-2013 Influenza (3 years and up) On: 01-May-2015 Comments:hospital Influenza (3 years and up) On: 31-May-2017 Comments:hospital Influenza (3 years and up) On: 03-Jun-2011 Pneumococcal (2 yrs and up) PPSV23 On: 2010 Family History COPD/EMPHYSEMA (Renamed from COPD) Status: Active Comments: Mother. Maternal Grandfather. Social History Alcohol use: Occasional alcohol use. Caffeine use: Coffee. Comments: 3-4 CUPS/DAY Current work status: Disabled. Exercise: Inactive. Marital status: . No drug use Pets/Animals: Cat. Tobacco use: Former smoker. Has been smoking for 25 years. Comments: 43 Smokes 1.5 packs of cigarettes per day. Age quit smoking. Former smoker Smoker. current status unknown Male Plan of Treatment CXR PA & LAT (23659) Start: 29-Dec-2019 Intent PRE AND POST W/ RT (27407) Start: 29-Dec-2019 Intent CONTINUOUS OVERNIGHT OXIMETRY (85193) Start: 27-Jun-2013 Intent TOTAL BODY PLETHYSMOGRAPHY (48480) Start: 30-Sep-2011 Intent THORACIC GAS VOLUME (44520) Start: 30-Sep-2011 Intent RESPIRATORY FLOW VOLUME LOOP (05808) Start: 30-Sep-2011 Intent PRE/POST (69170) Start: 30-Sep-2011 Intent MONOXIDE DIFFUSING CAPACITY (09957) Start: 30-Sep-2011 Intent MEASURE AIRFLOW RESISTANCE (85223) Start: 30-Sep-2011 Intent EXERCISE OXIMETRY (05510) Start: 30-Sep-2011 Intent REST OXIMETRY (15437) Start: 30-Sep-2011 Intent Medical; CHEST X-RAY - Start: 22-Dec-2019 13:30 Appointment Request [facility] XRAY [facility]; PRE AND POST RT - Start: 22-Dec-2019 13:45 Appointment Request [facility] Resp Therapy [facility]; FOLLOW UP 15 - 6MO SRINIVAS MEAD,PPRT,CXR Start: 22-Dec-2019 14:00 Appointment Request [facility] MD Yari Xiwu COPD (CHRONIC OBSTRUCTIVE PULMONARY DISEASE) : Referral to:[facility] for lung transplant eval. Indication:COPD (CHRONIC OBSTRUCTIVE PULMONARY DISEASE) COPD (CHRONIC OBSTRUCTIVE PULMONARY DISEASE) : SRINIVAS VERA 15, Dr MACKENZIE Indication:COPD (CHRONIC OBSTRUCTIVE PULMONARY DISEASE) RESPIRATORY FAILURE, CHRONIC : Continue oxygen and Triligy Ventilation as prescribed Indication:RESPIRATORY FAILURE, CHRONIC HYPOXEMIA : Oxygen use reinforced Indication:HYPOXEMIA COPD (CHRONIC OBSTRUCTIVE PULMONARY DISEASE) : SRINIVAS VERA 30 - Dr Mackenzie Indication:COPD (CHRONIC OBSTRUCTIVE PULMONARY DISEASE) COPD (CHRONIC OBSTRUCTIVE PULMONARY DISEASE) : Medication compliance reinforced Indication:COPD (CHRONIC OBSTRUCTIVE PULMONARY DISEASE) HYPOXEMIA : Oxygen use reinforced Indication:HYPOXEMIA EMPHYSEMA : Influenza vaccine seasonally - current Indication:EMPHYSEMA COPD (CHRONIC OBSTRUCTIVE PULMONARY DISEASE) : FU EITHER - Dr Mackenzie patient Indication:COPD (CHRONIC OBSTRUCTIVE PULMONARY DISEASE) COPD (CHRONIC OBSTRUCTIVE PULMONARY DISEASE) : Pt Education :Chronic Obstructive Pulmonary Disease (COPD) Indication:COPD (CHRONIC OBSTRUCTIVE PULMONARY DISEASE) HYPOXEMIA : Oxygen use reinforced Indication:HYPOXEMIA HYPOXEMIA : Patient Education: Using Oxygen at Home Indication:HYPOXEMIA COPD (CHRONIC OBSTRUCTIVE PULMONARY DISEASE) : Pt Education :Chronic Obstructive Pulmonary Disease (COPD) Indication:COPD (CHRONIC OBSTRUCTIVE PULMONARY DISEASE) HYPOXEMIA : Oxygen use reinforced Indication:HYPOXEMIA HYPOXEMIA : Patient Education: Using Oxygen at Home Indication:HYPOXEMIA COPD (CHRONIC OBSTRUCTIVE PULMONARY DISEASE) : Pt Education :Chronic Obstructive Pulmonary Disease (COPD) Indication:COPD (CHRONIC OBSTRUCTIVE PULMONARY DISEASE) HYPOXEMIA : Oxygen use reinforced Indication:HYPOXEMIA HYPOXEMIA : Patient Education: Using Oxygen at Home Indication:HYPOXEMIA COPD (CHRONIC OBSTRUCTIVE PULMONARY DISEASE) : Influenza vaccine seasonally - current Indication:COPD (CHRONIC OBSTRUCTIVE PULMONARY DISEASE) COPD (CHRONIC OBSTRUCTIVE PULMONARY DISEASE) : Medication compliance reinforced Indication:COPD (CHRONIC OBSTRUCTIVE PULMONARY DISEASE) COPD (CHRONIC OBSTRUCTIVE PULMONARY DISEASE) : Pt Education :Chronic Obstructive Pulmonary Disease (COPD) Indication:COPD (CHRONIC OBSTRUCTIVE PULMONARY DISEASE) HYPOXEMIA : Oxygen use reinforced Indication:HYPOXEMIA COPD (CHRONIC OBSTRUCTIVE PULMONARY DISEASE) : Influenza vaccine seasonally Indication:COPD (CHRONIC OBSTRUCTIVE PULMONARY DISEASE) COPD (CHRONIC OBSTRUCTIVE PULMONARY DISEASE) : Medication compliance reinforced Indication:COPD (CHRONIC OBSTRUCTIVE PULMONARY DISEASE) Results No Known Results No Result Information Available Vital Signs 30-Jun-2019 13:08 Comments: 4L Pulse Dose. Temperature 98.8 f Comments: Method: Tympanic Pulse 87 /min Comments: Pattern: Regular Respiration Rate 18 /min Comments: Pattern: Unlabored O2 SAT 97 % FiO2 4 L/min Comments: 4L O2 BP Systolic 106 mm[Hg] Comments: Patient Position: Sitting; Cuff Location: Left Arm; Cuff Size: Standard BP Diastolic 64 mm[Hg] Comments: Patient Position: Sitting; Cuff Location: Left Arm; Cuff Size: Standard Weight 111 lb Height 67 in BMI 17.38 kg/m2 BSA 1.57 m2 09-Mar-2019 11:56 Temperature 97.2 f Comments: Method: Tympanic Pulse 108 /min Comments: Pattern: Regular Respiration Rate 14 /min Comments: Pattern: Unlabored O2 SAT 95 % Comments: Room air BP Systolic 102 mm[Hg] Comments: Patient Position: Sitting; Cuff Location: Left Arm; Cuff Size: Standard BP Diastolic 62 mm[Hg] Comments: Patient Position: Sitting; Cuff Location: Left Arm; Cuff Size: Standard Weight 116 lb Height 67 in BMI 18.17 kg/m2 BSA 1.6 m2 01-Oct-2017 10:58 Temperature 98.4 f Comments: Method: Tympanic Pulse 114 /min Comments: Pattern: Regular Respiration Rate 15 /min Comments: Pattern: Unlabored O2 SAT 97 % FiO2 4 L/min Comments: 4L O2 BP Systolic 124 mm[Hg] Comments: Patient Position: Sitting; Cuff Location: Left Arm; Cuff Size: Standard BP Diastolic 66 mm[Hg] Comments: Patient Position: Sitting; Cuff Location: Left Arm; Cuff Size: Standard Weight 139 lb Height 67 in BMI 21.77 kg/m2 BSA 1.73 m2 22-Feb-2016 9:42 Temperature 98.4 f Comments: Method: Tympanic Pulse 84 /min Comments: Pattern: Regular Respiration Rate 14 /min Comments: Pattern: Unlabored O2 SAT 97 % FiO2 4 L/min Comments: 4L O2 BP Systolic 90 mm[Hg] Comments: Patient Position: Sitting; Cuff Location: Left Arm; Cuff Size: Standard BP Diastolic 60 mm[Hg] Comments: Patient Position: Sitting; Cuff Location: Left Arm; Cuff Size: Standard Weight 187 lb Height 67 in BMI 29.29 kg/m2 BSA 1.97 m2 20-Jul-2015 14:43 Comments: Exertional SaO2 -94% Temperature 98.4 f Comments: Method: Tympanic Pulse 109 /min Comments: Pattern: Regular Respiration Rate 16 /min Comments: Pattern: Unlabored O2 SAT 97 % FiO2 4 L/min Comments: 4L O2 BP Systolic 104 mm[Hg] Comments: Patient Position: Sitting; Cuff Location: Left Arm; Cuff Size: Standard BP Diastolic 60 mm[Hg] Comments: Patient Position: Sitting; Cuff Location: Left Arm; Cuff Size: Standard Weight 186 lb Height 67 in BMI 29.13 kg/m2 BSA 1.96 m2 12-Feb-2015 13:50 Temperature 98.4 f Comments: Method: Tympanic Pulse 80 /min Comments: Pattern: Regular Respiration Rate 16 /min Comments: Pattern: Unlabored O2 SAT 98 % FiO2 4 L/min Comments: 4L O2 Weight 193 lb Height 67 in BMI 30.23 kg/m2 BSA 1.99 m2 04-Jan-2014 9:51 Temperature 97.2 f Comments: Method: Tympanic Pulse 80 /min Comments: Pattern: Regular Respiration Rate 16 /min Comments: Pattern: Unlabored O2 SAT 95 % Comments: Room air BP Systolic 112 mm[Hg] Comments: Patient Position: Sitting; Cuff Location: Left Arm; Cuff Size: Standard BP Diastolic 78 mm[Hg] Comments: Patient Position: Sitting; Cuff Location: Left Arm; Cuff Size: Standard Weight 198 lb Height 67 in BMI 31.01 kg/m2 BSA 2.01 m2 27-Jun-2013 13:47 Temperature 97.6 f Comments: Method: Tympanic Pulse 86 /min Comments: Pattern: Regular Respiration Rate 14 /min Comments: Pattern: Unlabored O2 SAT 95 % Comments: Room air BP Systolic 118 mm[Hg] Comments: Patient Position: Sitting; Cuff Location: Right Arm; Cuff Size: Standard BP Diastolic 78 mm[Hg] Comments: Patient Position: Sitting; Cuff Location: Right Arm; Cuff Size: Standard Weight 187 lb Height 67 in BMI 29.29 kg/m2 BSA 1.97 m2 22-Dec-2012 14:58 Temperature 97.2 f Comments: Method: Tympanic Pulse 114 /min Comments: Pattern: Regular Respiration Rate 16 /min Comments: Pattern: Unlabored O2 SAT 95 % Comments: Room air BP Systolic 116 mm[Hg] Comments: Patient Position: Sitting; Cuff Location: Left Arm; Cuff Size: Standard BP Diastolic 68 mm[Hg] Comments: Patient Position: Sitting; Cuff Location: Left Arm; Cuff Size: Standard Weight 196 lb Height 67 in BMI 30.7 kg/m2 BSA 2 m2 16-Jun-2012 13:46 Temperature 97.9 f Comments: Method: Tympanic Pulse 100 /min Comments: Pattern: Regular Respiration Rate 17 /min Comments: Pattern: Unlabored O2 SAT 97 % Comments: Room air BP Systolic 104 mm[Hg] Comments: Patient Position: Sitting; Cuff Location: Left Arm; Cuff Size: Standard BP Diastolic 78 mm[Hg] Comments: Patient Position: Sitting; Cuff Location: Left Arm; Cuff Size: Standard Weight 190 lb Height 67 in BMI 29.76 kg/m2 BSA 1.98 m2 08-Jun-2012 13:26 Temperature 98.4 f Comments: Method: Tympanic Pulse 110 /min Comments: Pattern: Regular Respiration Rate 15 /min Comments: Pattern: Unlabored O2 SAT 95 % Comments: Room air BP Systolic 114 mm[Hg] Comments: Patient Position: Sitting; Cuff Location: Left Arm; Cuff Size: Standard BP Diastolic 92 mm[Hg] Comments: Patient Position: Sitting; Cuff Location: Left Arm; Cuff Size: Standard Weight 191 lb Height 67 in BMI 29.91 kg/m2 BSA 1.98 m2 02-Feb-2012 13:12 Comments: 94% on 2.5L NC with Conserving Device at rest Temperature 98.5 f Comments: Method: Tympanic Pulse 105 /min Comments: Pattern: Regular Respiration Rate 18 /min Comments: Pattern: Unlabored BP Systolic 118 mm[Hg] Comments: Patient Position: Sitting; Cuff Location: Left Arm; Cuff Size: Standard BP Diastolic 72 mm[Hg] Comments: Patient Position: Sitting; Cuff Location: Left Arm; Cuff Size: Standard Weight 216 lb Height 67 in BMI 33.83 kg/m2 BSA 2.09 m2 30-Sep-2011 8:22 Comments: Exercise sat on 3L NC with conserving device 93% Temperature 98.6 f Comments: Method: Tympanic Pulse 107 /min Comments: Pattern: Regular Respiration Rate 18 /min Comments: Pattern: Unlabored O2 SAT 96 % FiO2 3 L/min Comments: 3L O2 BP Systolic 113 mm[Hg] Comments: Patient Position: Sitting; Cuff Location: Left Arm; Cuff Size: Large BP Diastolic 74 mm[Hg] Comments: Patient Position: Sitting; Cuff Location: Left Arm; Cuff Size: Large Weight 221 lb Height 67 in BMI 34.61 kg/m2 BSA 2.11 m2 Advance Directives HIPAA - Effective on 10/01/2017. Expiration date unspecified. Effective: 2017 Scanned Document is available upon request. Encounters Office Visit 30-Jun-2019 14:00 To 30-Jun-2019 13:53 Encounter Reason: COPD - The last office visit was 3 month(s) ago. No changes in management were made at the last visit [facility] . The Gold Classification is Stage 4: Very Severe COPD. Symptoms include dyspnea on exertion, wheezing and non-productive cough, while symptoms do not include dyspnea, dyspnea at rest, productive cough, clear sputum production, colored sputum production, increased sputum production or change in sputum quality. Onset was gradual. The episodes occur daily. The patient describes this as moderate in sever ity and unchanged. Symptoms are exacerbated by activity. Symptoms are relieved by inhaler use, use of a nebulizer, supplemental oxygen and rest. Associated symptoms do not include fever, weakness, gener al malaise, hemoptysis, leg edema, orthopnea, upper respiratory infection symptoms, chest pain or altered mental status. Current treatment includes inhaled albuterol, inhaled long-acting beta-2 agonists , inhaled corticosteroids, supplemental oxygen and BIPAP (trilogy for chronic respiratory failure). Encounter Diagnosis: COPD (CHRONIC OBSTRUCTIVE PULMONARY DISEASE), HYPOXEMIA, EMPHYSEMA, RESPIRATORY FAILURE, CHRONIC, ALPHA-1- ANTITRYPSIN DEFICIENCY (Renamed from AAT (OZOIN-[id number]) DEFICIENCY) Office Visit 09-Mar-2019 13:00 To 09-Mar-2019 12:46 Encounter Reason: COPD - The primary physician is Arash STANFORD. The last office visit was 7 month(s) ago. No changes [facility] in management were made at the last visit. The Gold Classification is Stage 4: Very Severe COPD. Symptoms include dyspnea on exertion, while symptoms do not include wheezing, non-productive cough, produ ctive cough or clear sputum production. Onset was gradual year(s) ago. The symptoms occur intermittently. The episodes occur daily. The patient describes this as severe and improving. Symptoms are exace rbated by activity. Symptoms are relieved by inhaler use, use of a nebulizer, supplemental oxygen and rest (and Trilogy Ventilation). Associated symptoms do not include general malaise, hemoptysis, leg edema, upper respiratory infection symptoms or chest pain. Current treatment includes inhaled albuterol, inhaled long-acting beta-2 agonists, inhaled anticholinergics, inhaled corticosteroids, Daliresp, supplemental oxygen and Trilogy. By report there is good compliance with treatment, good tolerance of treatment and fair symptom control. Pertinent medical history includes smoking (has quit), oxygen d ependency, prior intubation and ventilator therapy, pneumonia, congestive heart failure and alpha-1 antitrypsin deficiency, while pertinent medical history does not include smoking (currently), steroid dependency or asthma. The patient has not been exposed to secondhand smoke, air pollution or occupational exposure to dust. The patient is currently able to do activities of daily living with limitations., [ADDITIONAL REASON] Alpha 1 Antitrypsin Deficiency - The Gold Classification is Stage 4: Very Severe COPD. The patient describes this as unchanged. Current treatment includes Aralast therapy. By report there is good compliance with treatment and good tolerance of treatment. Encounter Diagnosis: HYPOXEMIA, COPD (CHRONIC OBSTRUCTIVE PULMONARY DISEASE), [id number] DEFICIENCY (Renamed from AAT ([id number]) DEFICIENCY), RESPIRATORY FAILURE, CHRONIC, WEIGHT LOSS , UNINTENTIONAL Historical Summary 19-May-2018 16:41 To 19-May-2018 16:52 Encounter Reason: COPD - The primary physician is Arash STANFORD. The last office visit was 7 month(s) ago. No changes [facility] [place], [place] in management were made at the last visit. The Gold Classification is Stage 4: Very Severe COPD. Symptoms include dyspnea on exertion, while symptoms do not include wheezing, non-productive cough or pro ductive cough. Onset was gradual year(s) ago. The symptoms occur intermittently. The episodes occur daily. The patient describes this as severe and unchanged. Symptoms are exacerbated by activity. Sympt oms are relieved by inhaler use, use of a nebulizer, supplemental oxygen and rest (and Trilogy Ventilation). Associated symptoms do not include general malaise, hemoptysis, leg edema, upper respiratory infection symptoms or chest pain. Current treatment includes inhaled albuterol , inhaled long-acting beta-2 agonists, inhaled anticholinergics, inhaled corticosteroids, Daliresp, supplemental oxygen and Trilogy. By report there is good compliance with treatment, good tolerance of treatment and fair symptom control. Pertinent medical history includes smoking ( has quit), oxygen dependency, prior intubati on and ventilator therapy, pneumonia, congestive heart failure and alpha-1 antitrypsin deficiency, while pertinent medical history does not include smoking (currently), steroid dependency or asthma. The patient has not been exposed to secondhand smoke, air pollution or occupational exposure to dust. The patient is currently able to do activities of daily living with limitations., [ADDITIONAL REASON] Alpha 1 Antitrypsin Deficiency - The Gold Classification is Stage 4: Very Severe COPD. The patient describes this as unchanged. Current treatment includes Aralast therapy. By report there is good compliance with treatment and good tolerance of treatment. Annotation/Addendum 01-Oct-2017 11:40 To 01-Oct-2017 11:41 Encounter Diagnosis: HYPOXEMIA [facility] Office Office Visit 01-Oct-2017 10:19 To 01-Oct-2017 11:24 Encounter Reason: COPD - The last office visit was 18 month(s) ago. No changes in management were made at the last visi [facility] Office t. The Gold Classification is Stage 4: Very Severe COPD. Symptoms include dyspnea on exertion, while symptoms do not include dyspnea, dyspnea at rest, wheezing, non-productive cough, productive cough, c lear sputum production, colored sputum production, increased sputum production or change in sputum quality. Onset was gradual. The episodes occur daily. The patient describes this as severe and unchange d. Symptoms are exacerbated by activity. Symptoms are relieved by inhaler use, use of a nebulizer, supplemental oxygen and rest. Associated symptoms do not include fever, weakness, general malaise, hemo ptysis, leg edema, orthopnea, upper respiratory infection symptoms, chest pain or altered mental status. Current treatment includes inhaled albuterol, inhaled long-acting beta-2 agonists, inhaled antich olinergics, inhaled corticosteroids, Daliresp, supplemental oxygen and Trilogy. By report there is good compliance with treatment. Pertinent medical history includes smoking (has quit), pneumonia and co ngestive heart failure, while pertinent medical history does not include smoking (currently), oxygen dependency, steroid dependency, asthma, prior intubation and ventilator therapy, tracheostomy, cor pu lmonale, obstructive sleep apnea, lung cancer, impaired immunity or alpha-1 antitrypsin deficiency., [ADDITIONAL REASON] Alpha 1 Antitrypsin Deficiency - patient is on the aralast transfusion every week. Encounter Diagnosis: COPD (CHRONIC OBSTRUCTIVE PULMONARY DISEASE), [id number] DEFICIENCY (Renamed from AAT (ALPHA-1- ANTITRYPSIN) DEFICIENCY), EMPHYSEMA, HYPOXEMIA Office Visit 22-Feb-2016 8:37 To 22-Feb-2016 10:06 Encounter Reason: COPD - The last office visit was 6 month(s) ago. No changes in management were made at the last visit [facility] . The Gold Classification is Stage 4: Very Severe COPD. Symptoms include dyspnea on exertion, while symptoms do not include dyspnea, dyspnea at rest, wheezing, non-productive cough, productive cough, cl ear sputum production, colored sputum production, increased sputum production or change in sputum quality. Onset was gradual. The episodes occur daily. The patient describes this as severe and unchanged . Symptoms are exacerbated by activity. Symptoms are relieved by inhaler use, use of a nebulizer, supplemental oxygen and rest. Associated symptoms do not include fever, weakness, general malaise, hemop tysis, leg edema, orthopnea, upper respiratory infection symptoms, chest pain or altered mental status. Current treatment includes inhaled albuterol, inhaled long-acting beta-2 agonists, oral corticoste roids and Daliresp. By report there is good compliance with treatment., [ ADDITIONAL REASON] Alpha 1 Antitrypsin Deficiency - patient is on the aralast transfusion every week. Encounter Diagnosis: COPD (CHRONIC OBSTRUCTIVE PULMONARY DISEASE), HYPOXEMIA, EMPHYSEMA, [id number]-1-[id number] DEFICIENCY ( Renamed from AAT ([id number]) DEFICIENCY) Office Visit 20-Jul-2015 14:22 To 20-Jul-2015 15:14 Encounter Reason: COPD - The last office visit was 6 month(s) ago. No changes in management were made at the last visit [facility] [place], [place] . The Gold Classification is Stage 4: Very Severe COPD. Symptoms include dyspnea on exertion, wheezing, productive cough and clear sputum production, while symptoms do not include dyspnea, dyspnea at re st, non-productive cough, colored sputum production, increased sputum production or change in sputum quality. The episodes occur daily. The patient describes this as severe and unchanged. Symptoms are e xacerbated by activity. Symptoms are relieved by inhaler use, use of a nebulizer, supplemental oxygen and rest. Associated symptoms do not include fever, weakness, general malaise, hemoptysis, leg edema , orthopnea, upper respiratory infection symptoms, chest pain or altered mental status. Current treatment includes inhaled albuterol, inhaled long- acting beta-2 agonists, inhaled corticosteroids, oral c orticosteroids, Daliresp and supplemental oxygen. By report there is good compliance with treatment. Pertinent medical history includes smoking (has quit) . The patient is currently able to do activities of daily living with limitations., [ADDITIONAL REASON] Alpha 1 Antitrypsin Deficiency - patient is on the aralast transfusion every week. Encounter Diagnosis: EMPHYSEMA, HYPOXEMIA, [id number]-1-[id number] DEFICIENCY (Renamed from AAT ([id number]) DEFICIENCY), COPD (CHRONIC OBSTRUCTIVE PULMONARY DISEASE) Office Visit 12-Feb-2015 14:15 To 22-Feb-2015 9:42 Encounter Reason: COPD - The referring provider is ARASH STANFORD. The last office visit was 1 year(s) ago (the patient [facility] Office is here today in hospital follow up. He was at [place] and transferred to [facility] with acute on chronic respiratory failure. He was intubated and in MICU. He was in the hospital for 12 days. He was in tubated for 3 days. ). The Gold Classification is Stage 4: Very Severe COPD. Symptoms include dyspnea, dyspnea on exertion (improved), wheezing (rare), non- productive cough, productive cough and clear s putum production, while symptoms do not include colored sputum production, increased sputum production or change in sputum quality. Onset was gradual year( s) ago. The symptoms occur intermittently. The episodes occur daily. The patient describes this as severe and unchanged. Symptoms are exacerbated by activity. Symptoms are relieved by inhaler use, use of a nebulizer, supplemental oxygen and rest (an d aralast). Associated symptoms do not include leg edema, upper respiratory infection symptoms or chest pain. Current treatment includes inhaled albuterol, inhaled long-acting beta-2 agonists, inhaled i pratropium, inhaled corticosteroids, oral corticosteroids (2.5mg/day), theophylline and supplemental oxygen. By report there is good compliance with treatment, good tolerance of treatment and good sympt om control. Pertinent medical history includes smoking (has quit), steroid dependency and alpha-1 antitrypsin deficiency (on aralast). The patient has not been exposed to secondhand smoke, air pollution or occupational exposure to dust. The patient is currently able to do activities of daily living without limitations and able to do housework with limitations. Past evaluation has included pulse oximet ry, pulmonary function tests and pulmonology evaluation., [ADDITIONAL REASON] Alpha 1 Antitrypsin Deficiency - The Gold Classification is Stage 4: Very Severe COPD. Symptoms include dyspnea on exertion, non-productive cough, productive cough and clear sputum production, while symptoms do not include wheezing. Onset was gradual. The patient describes this as improving. Current treatment includes Aralast therapy (WEEKLY). By report there is good compliance with treatment. Encounter Diagnosis: COPD (CHRONIC OBSTRUCTIVE PULMONARY DISEASE), EMPHYSEMA, HYPOXEMIA, EFPUD-[id number] DEFICIENCY ( Renamed from AAT ([id number]) DEFICIENCY) Historical Summary 12-Feb-2015 12:44 To 12-Feb-2015 12:46 Encounter Reason: COPD - The referring provider is ARASH STANFORD. The last office visit was 1 year(s) ago (the patient [facility] is here today in hospital follow up. He was at [facility] with acute on chronic respiratory failure.). The Gold Classification is Stage 4: Very Severe COPD. Symptoms include dyspnea, dyspnea on exertion (im proved), wheezing (rare), non-productive cough, productive cough and clear sputum production, while symptoms do not include colored sputum production, increased sputum production or change in sputum amanda lity. Onset was gradual year(s) ago. The symptoms occur intermittently. The episodes occur daily. The patient describes this as severe and unchanged. Symptoms are exacerbated by activity. Symptoms are r elieved by inhaler use, use of a nebulizer, supplemental oxygen and rest (and aralast). Associated symptoms do not include leg edema, upper respiratory infection symptoms or chest pain. Current treatmen t includes inhaled albuterol, inhaled long-acting beta-2 agonists, inhaled ipratropium, inhaled corticosteroids, oral corticosteroids (2.5mg/day), theophylline and supplemental oxygen. By report there i s good compliance with treatment, good tolerance of treatment and good symptom control. Pertinent medical history includes smoking (has quit), steroid dependency and alpha-1 antitrypsin deficiency (on a ralast). The patient has not been exposed to secondhand smoke, air pollution or occupational exposure to dust. The patient is currently able to do activities of daily living without limitations and able to do housework with limitations. Past evaluation has included pulse oximetry , pulmonary function tests and pulmonology evaluation., [ADDITIONAL REASON] Alpha 1 Antitrypsin Deficiency - The Gold Classification is Stage 4: Very Severe COPD. Symptoms include dyspnea on exertion, non-productive cough, productive cough and clear sputum production, while symptoms do not include wheezing. Onset was gradual. The patient describes this as improving. Current treatment includes Aralast therapy (WEEKLY). By report there is good compliance with treatment. Medication Order 30-Jan-2015 16:26 To 31-Jan-2015 9:05 Encounter Diagnosis: COPD (CHRONIC OBSTRUCTIVE PULMONARY DISEASE) [facility] Office Visit 04-Jan-2014 9:48 To 04-Jan-2014 11:38 Encounter Reason: COPD - The referring provider is ARASH STANFORD. The last office visit was 7 month(s) ago. The Gold C [facility] lassification is Stage 3: Severe COPD. Symptoms include dyspnea, dyspnea on exertion (improved), wheezing (rare) and non-productive cough, while symptoms do not include colored sputum production, increa sed sputum production or change in sputum quality. Onset was gradual year(s) ago. The symptoms occur intermittently. The episodes occur daily. The patient describes this as severe and unchanged. Symptom s are exacerbated by activity. Symptoms are relieved by inhaler use, use of a nebulizer, supplemental oxygen and rest (and aralast). Associated symptoms do not include leg edema, upper respiratory infec tion symptoms or chest pain. Current treatment includes inhaled albuterol, inhaled long-acting beta-2 agonists, inhaled ipratropium, inhaled corticosteroids, oral corticosteroids (2.5mg/day), theophylli ne and supplemental oxygen. By report there is good compliance with treatment, good tolerance of treatment and good symptom control. Pertinent medical history includes smoking (has quit), steroid depend ency and alpha-1 antitrypsin deficiency (on aralast). The patient has not been exposed to secondhand smoke, air pollution or occupational exposure to dust. The patient is currently able to do activities of daily living without limitations and able to do housework with limitations. Past evaluation has included pulse oximetry, pulmonary function tests and pulmonology evaluation., [ADDITIONAL REASON] Alpha 1 Antitrypsin Deficiency - The last office visit was 6 month(s) ago. No changes in management were made at the last visit. The Gold Classification is Stage 4: Very Severe COPD . Symptoms include dyspnea on exertion, non-productive cough, productive cough and clear sputum production, while symptoms do not include wheezing. Onset was gradual. The patient describes this as impro ving. Current treatment includes Aralast therapy (WEEKLY). By report there is good compliance with treatment. Encounter Diagnosis: COPD (CHRONIC OBSTRUCTIVE PULMONARY DISEASE), EMPHYSEMA, EIUMM-8-[id number] DEFICIENCY (Renamed from AAT ([id number]) DEFICIENCY) Office Visit 27-Jun-2013 13:19 To 27-Jun-2013 14:23 Encounter Reason: COPD - The referring provider is ARASH STANFORD. The last office visit was 6 month(s) ago. The Gold C [facility] Office lassification is Stage 3: Severe COPD. Symptoms include dyspnea, dyspnea on exertion (improved), wheezing (LITTLE) and non-productive cough, while symptoms do not include colored sputum production, incr eased sputum production or change in sputum quality. Onset was gradual year(s) ago. The symptoms occur intermittently. The episodes occur daily. The patient describes this as severe and improving. Sympt oms are exacerbated by activity. Symptoms are relieved by inhaler use, use of a nebulizer, supplemental oxygen and rest (AND ARALAST). Associated symptoms do not include upper respiratory infection symp toms or chest pain. Current treatment includes inhaled albuterol, inhaled long- acting beta-2 agonists, inhaled ipratropium, inhaled corticosteroids, oral corticosteroids (1MG PREDNISONE/DAY), theophylli ne and supplemental oxygen (NOT ALWAYS USING AT NIGHT RECENTLY SINCE HE HAS BEEN FEELING SO MUCH BETTER). By report there is good compliance with treatment , good tolerance of treatment and good symptom control. Pertinent medical history includes smoking (has quit), steroid dependency and alpha-1 antitrypsin deficiency. The patient has not been exposed to secondhand smoke, air pollution or occupational exposure to dust. The patient is currently able to do activities of daily living without limitations and able to do housework with limitations. Past evaluation has included chest x-ray, chest CT, pulse oximetry, pulmonary function tests and pulmonology evaluation.06/27/2013: FEELS OK. NO COPD EXACERBATION. TAKING THE MEDS PRESCRIBED. PFTS IMPROVED. , [ADDITIONAL REASON] Emphysema - The onset of the emphysema has been gradual and has been occurring for years. The course has been gradually worsening. The emphysema is described as severe (THE PATIENT WAS FOUND TO HAVE ALPHA-1 ANTITRYPSIN DEFICIENCY AND A PHENOTYPE OF MZ. HIS LEVEL WAS 79MG/DL. HE IS ON ARALAST REPLACEMENT THERAPY.(STARTED 2009)).ON O2 CONTINUOUSLY. , [ADDITIONAL REASON] Alpha 1 Antitrypsin Deficiency - The last office visit was 6 month(s) ago. No changes in management were made at the last visit. The Gold Classification is Stage 4: Very Severe COPD . Symptoms include dyspnea on exertion, wheezing and non-productive cough. Onset was gradual 2 year(s) ago. The patient describes this as improving. Current treatment includes Aralast therapy (WEEKLY). By report there is good compliance with treatment. Initial symptoms of chronic obstructive pulmonary disease began 2 year(s) ago. Encounter Diagnosis: COPD (CHRONIC OBSTRUCTIVE PULMONARY DISEASE), INFLUENZA VACCINE NEEDED, TFELX-4-[id number] DEFICIENCY ( Renamed from AAT ([id number]) DEFICIENCY), HYPOXEMIA Office Visit 22-Dec-2012 14:25 To 22-Dec-2012 15:55 Encounter Reason: COPD - The referring provider is ARASH STANFORD. The last office visit was 6 month(s) ago. The Gold C [facility] Office lassification is Stage 3: Severe COPD. Symptoms include dyspnea, dyspnea on exertion (improved), wheezing (LITTLE) and non-productive cough, while symptoms do not include colored sputum production, incr eased sputum production or change in sputum quality. Onset was gradual year(s) ago. The symptoms occur intermittently. The episodes occur daily. The patient describes this as severe and improving. Sympt oms are exacerbated by activity. Symptoms are relieved by inhaler use, use of a nebulizer, supplemental oxygen and rest (AND ARALAST). Associated symptoms do not include upper respiratory infection symp toms or chest pain. Current treatment includes inhaled albuterol, inhaled long- acting beta-2 agonists, inhaled ipratropium, inhaled corticosteroids, oral corticosteroids (1MG PREDNISONE/DAY), theophylli ne and supplemental oxygen (NOT ALWAYS USING AT NIGHT RECENTLY SINCE HE HAS BEEN FEELING SO MUCH BETTER). By report there is good compliance with treatment , good tolerance of treatment and good symptom control. Pertinent medical history includes smoking (has quit), steroid dependency and alpha-1 antitrypsin deficiency. The patient has not been exposed to secondhand smoke, air pollution or occupational exposure to dust. The patient is currently able to do activities of daily living without limitations and able to do housework with limitations. Past evaluation has included chest x-ray, chest CT, pulse oximetry, pulmonary function tests and pulmonology evaluation. Encounter Diagnosis: COPD (CHRONIC OBSTRUCTIVE PULMONARY DISEASE) (496), QXYET-1-PTIYMKTVUFO DEFICIENCY (273.4), HYPOXEMIA, EMPHYSEMA (492.8) Medication Order 18-Oct-2012 8:09 To 18-Oct-2012 8:30 Encounter Diagnosis: COPD (CHRONIC OBSTRUCTIVE PULMONARY DISEASE) (496) [facility] Office Medication Order 23-Jun-2012 8:56 To 23-Jun-2012 9:42 Encounter Diagnosis: ROQTR-3-[id number] DEFICIENCY (273.4) [facility] Office Visit 16-Jun-2012 13:24 To 16-Jun-2012 14:10 Encounter Reason: COPD - The referring provider is ARASH STANFORD. The last office visit was 6 month(s) ago. Management [facility] Office changes made at the last visit include ordering DEXA SCAN (PATIENT REPORTS HIS SCAN WAS ABNORMAL. HE HAS OSTEOPOROSIS AND IS NOW TREATED PER HIS PRIMARY CARE PROVIDER.). Symptoms include dyspnea, dyspn ea on exertion (SAME), wheezing and non-productive cough, while symptoms do not include colored sputum production, increased sputum production or change in sputum quality. Onset was gradual year(s) ago. The episodes occur daily. The patient describes this as severe and unchanged ( PER PATIENT). Symptoms are exacerbated by activity. Symptoms are relieved by inhaler use, use of a nebulizer, supplemental oxygen and rest. Associated symptoms do not include upper respiratory infection symptoms (LAST MONTH HOSPITALIZED WITH CHEST PRESSURE AND DYSPNEA. TREATED WITH ANTIBIOTICS AND PRED. SET UP A CARDIAC KELLI LUATION.) or chest pain. Current treatment includes inhaled albuterol, inhaled long-acting beta-2 agonists, inhaled ipratropium, inhaled corticosteroids, oral corticosteroids, theophylline (AND ARALAST INFUSIONS WEEKLY) and supplemental oxygen. By report there is good compliance with treatment, good tolerance of treatment and good symptom control. Pertinent medical history includes smoking (has quit), oxygen dependency, steroid dependency and alpha-1 antitrypsin deficiency. The patient has not been exposed to secondhand smoke, air pollution or occupational exposure to dust. The patient is currently able to do activities of daily living without limitations and able to do housework with limitations.FEELS OK. CHILLS, NO FEVER.MILD DRY COUGH. WAS HOSPITLIZED A COUPLE OF TIMES IN THE LAT FEW MONTHS . WILL ADD DALIRESP.FEELS OK. NO COPD EXACERBATION. HAD QUESTIONABLE REACTION TO THE PROLASTIN FEW DAYS AGO. I HAD A DETAILED DISCUSSION WITH THE FAMILY AND PATIENT IN REGARDING THE WHOLE TH ING. HE HAS BEEN ON THE PROLASTIN FOR 3 MONTHS, QUESTIONABLE ALERGY NEVER HAPPENED BEFORE, PATIENT AND HI WILLING TO TRY AGAIN, IF HAS SIMILAR EPISODE WILL STOP IT, OTHERWISE WILL CONTINUE. I RESPECT THEIR DECISION. 06/16/2012: PATIENT HAD ANOTHER REACTION THE THE PROLASTIN LAST WEEK, AND HAS TO HOSPITALIZED AGAIN. OBVIOUSLY HE DID HAVE ALLERGIC REACTION BY BACK PAIN, FEEL WARM OF THE B CASEY, AND NAUSEA. PATIENT ALSO TOOK BENEDRYL, WHICH DID NOT PREVENT IT FROM HAPPENING. Encounter Diagnosis: HYPOXEMIA (799.02), ALPHA- 1-ANTITRYPSIN DEFICIENCY (273.4), COPD (CHRONIC OBSTRUCTIVE PULMONARY DISEASE) ( 496) Historical Summary 11-Jun-2012 14:04 To 11-Jun-2012 14:07 [facility] Office Office Visit 08-Jun-2012 12:57 To 08-Jun-2012 14:17 Encounter Reason: COPD - The referring provider is ARASH STANFORD. The last office visit was 6 month(s) ago. Management [facility] Office changes made at the last visit include ordering DEXA SCAN (PATIENT REPORTS HIS SCAN WAS ABNORMAL. HE HAS OSTEOPOROSIS AND IS NOW TREATED PER HIS PRIMARY CARE PROVIDER.). Symptoms include dyspnea, dyspn ea on exertion (SAME), wheezing and non-productive cough, while symptoms do not include colored sputum production, increased sputum production or change in sputum quality. Onset was gradual year(s) ago. The episodes occur daily. The patient describes this as severe and unchanged ( PER PATIENT). Symptoms are exacerbated by activity. Symptoms are relieved by inhaler use, use of a nebulizer, supplemental oxygen and rest. Associated symptoms do not include upper respiratory infection symptoms (LAST MONTH HOSPITALIZED WITH CHEST PRESSURE AND DYSPNEA. TREATED WITH ANTIBIOTICS AND PRED. SET UP A CARDIAC KELLI LUATION.) or chest pain. Current treatment includes inhaled albuterol, inhaled long-acting beta-2 agonists, inhaled ipratropium, inhaled corticosteroids, oral corticosteroids, theophylline (AND ARALAST INFUSIONS WEEKLY) and supplemental oxygen. By report there is good compliance with treatment, good tolerance of treatment and good symptom control. Pertinent medical history includes smoking (has quit), oxygen dependency, steroid dependency and alpha-1 antitrypsin deficiency. The patient has not been exposed to secondhand smoke, air pollution or occupational exposure to dust. The patient is currently able to do activities of daily living without limitations and able to do housework with limitations.FEELS OK. CHILLS, NO FEVER.MILD DRY COUGH. WAS HOSPITLIZED A COUPLE OF TIMES IN THE LAT FEW MONTHS . WILL ADD DALIRESP.FEELS OK. NO COPD EXACERBATION. HAD QUESTIONABLE REACTION TO THE PROLASTIN FEW DAYS AGO. I HAD A DETAILED DISCUSSION WITH THE FAMILY AND PATIENT IN REGARDING THE WHOLE THING. HE HAS BEEN ON THE PROLASTIN FOR 3 MONTHS, QUESTIONABLE ALERGY NEVER HAPPENED BEFORE, PATIENT AND HI WILLING TO TRY AGAIN, IF HAS SIMILAR EPISODE WILL STOP IT, OTHERWISE WILL CONTINUE. I RESPECT THEIR DECISION. , [ADDITIONAL REASON] Emphysema - The onset of the emphysema has been gradual and has been occurring for years. The course has been gradually worsening. The emphysema is described as severe (THE PATIENT WAS FOUND TO HAVE ALPHA-1 ANTITRYPSIN DEFICIENCY AND A PHENOTYPE OF MZ. HIS LEVEL WAS 79MG/DL. HE IS ON ARALAST REPLACEMENT THERAPY.(STARTED 2009)).ON O2 CONTINUOUSLY. Encounter Diagnosis: COPD (CHRONIC OBSTRUCTIVE PULMONARY DISEASE) (496), [id number] DEFICIENCY (273.4), HYPOXEMIA ( 799.02) Office Visit 02-Feb-2012 13:07 To 02-Feb-2012 14:10 Encounter Reason: COPD - The referring provider is ARASH STANFORD. The last office visit was 6 month(s) ago. Management [facility] Office changes made at the last visit include ordering DEXA SCAN (PATIENT REPORTS HIS SCAN WAS ABNORMAL. HE HAS OSTEOPOROSIS AND IS NOW TREATED PER HIS PRIMARY CARE PROVIDER.). Symptoms include dyspnea, dyspn ea on exertion (SAME), wheezing and non-productive cough, while symptoms do not include colored sputum production, increased sputum production or change in sputum quality. Onset was gradual year(s) ago. The episodes occur daily. The patient describes this as severe and unchanged ( PER PATIENT). Symptoms are exacerbated by activity. Symptoms are relieved by inhaler use, use of a nebulizer, supplemental oxygen and rest. Associated symptoms do not include upper respiratory infection symptoms (LAST MONTH HOSPITALIZED WITH CHEST PRESSURE AND DYSPNEA. TREATED WITH ANTIBIOTICS AND PRED. SET UP A CARDIAC KELLI LUATION.) or chest pain. Current treatment includes inhaled albuterol, inhaled long-acting beta-2 agonists, inhaled ipratropium, inhaled corticosteroids, oral corticosteroids, theophylline (AND ARALAST INFUSIONS WEEKLY) and supplemental oxygen. By report there is good compliance with treatment, good tolerance of treatment and good symptom control. Pertinent medical history includes smoking (has quit), oxygen dependency, steroid dependency and alpha-1 antitrypsin deficiency. The patient has not been exposed to secondhand smoke, air pollution or occupational exposure to dust. The patient is currently able to do activities of daily living without limitations and able to do housework with limitations.FEELS OK. CHILLS, NO FEVER.MILD DRY COUGH. WAS HOSPITLIZED A COUPLE OF TIMES IN THE LAT FEW MONTHS. WILL ADD SYDNEEIRESP., [ADDITIONAL REASON] Emphysema - The onset of the emphysema has been gradual and has been occurring for years. The course has been gradually worsening. The emphysema is described as severe (THE PATIENT WAS FOUND TO HAVE ALPHA-1 ANTITRYPSIN DEFICIENCY AND A PHENOTYPE OF MZ. HIS LEVEL WAS 79MG/DL. HE IS ON ARALAST REPLACEMENT THERAPY.(STARTED 2009)).ON O2 CONTINUOUSLY. Encounter Diagnosis: COPD (CHRONIC OBSTRUCTIVE PULMONARY DISEASE) (496), [id number] DEFICIENCY (273.4), HYPOXEMIA ( 799.02) Office Visit 30-Sep-2011 8:22 To 30-Sep-2011 9:28 Encounter Reason: COPD - The referring provider is ARASH STANFORD. The last office visit was 6 month(s) ago. Management [facility] Office changes made at the last visit include ordering DEXA SCAN (PATIENT REPORTS HIS SCAN WAS ABNORMAL. HE HAS OSTEOPOROSIS AND IS NOW TREATED PER HIS PRIMARY CARE PROVIDER.). Symptoms include dyspnea, dyspn ea on exertion (SAME), wheezing and non-productive cough, while symptoms do not include colored sputum production, increased sputum production or change in sputum quality. Onset was gradual year(s) ago. The episodes occur daily. The patient describes this as severe and unchanged ( PER PATIENT). Symptoms are exacerbated by activity. Symptoms are relieved by inhaler use, use of a nebulizer, supplemental oxygen and rest. Associated symptoms do not include upper respiratory infection symptoms (LAST MONTH HOSPITALIZED WITH CHEST PRESSURE AND DYSPNEA. TREATED WITH ANTIBIOTICS AND PRED. SET UP A CARDIAC KELLI LUATION.) or chest pain. Current treatment includes inhaled albuterol, inhaled long-acting beta-2 agonists, inhaled ipratropium, inhaled corticosteroids, oral corticosteroids, theophylline (AND ARALAST INFUSIONS WEEKLY) and supplemental oxygen. By report there is good compliance with treatment, good tolerance of treatment and good symptom control. Pertinent medical history includes smoking (has quit), oxygen dependency, steroid dependency and alpha-1 antitrypsin deficiency. The patient has not been exposed to secondhand smoke, air pollution or occupational exposure to dust. The patient is currently able to do activities of daily living without limitations and able to do housework with limitations., [ADDITIONAL REASON] Emphysema - The onset of the emphysema has been gradual and has been occurring f or years. The course has been gradually worsening. The emphysema is described as severe (THE PATIENT WAS FOUND TO HAVE ALPHA-1 ANTITRYPSIN DEFICIENCY AND A PHENOTYPE OF MZ. HIS LEVEL WAS 79MG/DL. HE IS ON ARALAST REPLACEMENT THERAPY.( STARTED 2009)). Encounter Diagnosis: COPD (CHRONIC OBSTRUCTIVE PULMONARY DISEASE) (496), EMPHYSEMA (492.8), KOMVW-[id number] DEFICIENCY ( 273.4), HYPOXEMIA (799.02) Historical Summary 29-Sep-2011 14:06 To 29-Sep-2011 14:13 [facility] Historical Summary 26-Sep-2011 10:42 To 26-Sep-2011 10:54 [facility] Office Payers Medicare [facility] [address] [facility] [address] [place] Group Number: [id number] tel: Medicaid/[employer] [address] [facility] [address] [place] Group Number: NONE tel: MARVIN PRUITT [address] [facility] [address] tel:
[2019-09-02] MEDS ORDERED: NS 0.9% 1000 ML** 1,000 ML IV SCH (20:15)
[2019-09-02 20:21] LABS: Urine Appearance Cloudy; Urine Bilirubin Negative (Negative); Urine Blood 1+ (Negative); Urine Color Yellow; Urine Glucose 1+(50 mg/dL) (Negative); Urine Ketones 1+ (Negative); Urine Nitrite Negative (Negative); Urine Protein 2+(100 mg/dL) (Negative); Urine Specific Gravity 1.018 (1.010-1.030); Urine Urobilinogen Negative (Negative)
[2019-09-02 20:28] LABS: Urine Bacteria Absent (Absent); Urine Granular Casts Present (Absent); Urine Red Blood Cell 1+(3-5/hpf) (Absent); Urine Squamous Epithelial Cell Present (Absent); Urine White Blood Cell 2+(11-20/hpf) (Absent)
[2019-09-02] MEDS ORDERED: NS 0.9% 1000 ML/HR X 1 BAG (TOTAL 1000 ML) IV ONE (20:45)
[2019-09-02] MEDS ORDERED: Propofol* 100 ML IV SCH (21:00)
[2019-09-02 21:02] LABS: ABS Basophils 0.1 10^3/ul (0-0.2); ABS Lymphocytes 0.2 10^3/ul (1.0-4.8); ABS Monocytes 1.5 10^3/ul (0-0.8); Hematocrit 40 % (42-52); Lymphocyte % 1.2 %; Mean Corpuscular HGB Conc 33 g/dL (31-36); Mean Corpuscular Hemoglobin 28 pg (27-31); Mean Corpuscular Volume 86 fL (80-94); Nucleated Red Blood Cells % 0.1; Platelet Count 307 10^3/uL (150-450); Red Blood Count 4.64 10^6 /uL (4.18-5.48); Red Cell Distribution Width 15 % (10-15); White Blood Count 16.8 10^3/uL (3.5-10.8)
[2019-09-02] MEDS ORDERED: Vancomycin(*) 1,000 MG in NS 0.9% 250 ML* 250 ML IVPB ONE (21:16)
[2019-09-02] MEDS ORDERED: Piperacillin/Tazobac ADVAN(*) 3.375 GM in NS 0.9% 100 ML* 100 ML IVPB ONE (21:16)
[2019-09-02 21:19] LABS: BUN/Creatinine Ratio 14.7 (8-20); Calcium 7.9 mg/dL (8.6-10.3); EGFR African American 62.4 (>60); EGFR Non-African American 51.5 (>60); Potassium 6.1 mmol/L (3.5-5.0)
[2019-09-02] MEDS ORDERED: NS 0.9% 1000 ML** 2,000 ML IV ONE (21:21)
[2019-09-02] MEDS ORDERED: Sodium Polystyrene ORAL.SOL* 15 GM/60 ML BTL PO ONE (21:21)
[2019-09-02] MEDS: Pantoprazole IV* 40 MG IV SCH (21:35)
[2019-09-02] MEDS: Midazolam IV for DRIP* 100 MG in NS 0.9% 100 ML* 80 ML IV SCH (21:35)
[2019-09-02] MEDS: methylPREDNISolone SOD 40 MG* 1 ML VIAL IV SCH (21:35)
[2019-09-02] MEDS ORDERED: Zosyn per Pharmacy* NOTE FOLLOW UP SCH (22:00)
[2019-09-02] MEDS ORDERED: Vancomycin per Pharmacy* NOTE FOLLOW UP SCH (22:00)
--- NOTE | 2019-09-02 22:46 | ED ---
Progress - Progress Note Progress Note: Central lines Ultrasound Guided Central Line Insertion Procedure Note Indication: Medications requiring central access Consent: Risks and Benefits of the procedure described to patient, consent obtained. Skin Prep: Chlorhexidine Sterile Prep (allowed to dry for thirty seconds) Sterility: Patient prepped and draped in sterile fashion, sterile gloves and gown used Insertion: Appropriate time out was taken. Patient was prepped and draped in the usual fashion. Ultrasound guidance was utilized for vein selection and to document selected vessel patency. 2 mls of 1% lidocaine was infiltrated. Real time ultrasound visualization of needle entry into venous lumen was utilized and catheter was placed using Seldinger technique. Guide wire advanced without resistance and was removed intact. All ports jaswinder back easily and were flushed with normal saline. The central line was sutured. Insertion Site: L IJ vein Type of catheter: triple lumen Blood return: yes Saline lock: yes Post Procedure: Estimated blood loss: minimal Complications: none port CXR: line OK to use Course/Dx - Diagnoses Provider Diagnoses: COPD exacerbation Discharge ED - Sign-Out/Discharge Documenting (check all that apply): Patient Departure - Discharge Plan Condition: Critical Disposition: ADMITTED TO [facility] - Billing Disposition and Condition Condition: CRITICAL Disposition: Admitted to [facility]
[2019-09-02] MEDS: Chlorhexidine MOUTHWASH 0.12%* 15 ML UDC TOPICAL SCH (23:09)
--- NOTE | 2019-09-02 23:40 | HP ---
CC: Shady Talley at [facility] ADMISSION HISTORY AND PHYSICAL: DATE OF ADMISSION: 09/02/19 CHIEF COMPLAINT: Shortness of breath. HISTORY OF PRESENT ILLNESS: This is a 54-year-old male with past medical history of COPD, on 4 L brittney al cannula at home with alpha-1 antitrypsin, emphysema, likely end-stage COPD, depression, anxiety, h yperlipidemia, borderline diabetes, who was sent from [facility] for a followup with Pulmonology after he was intubated. The patient himself was intubated and I attempted to conta ct the patient's daughter whose number was given to me by the nurse at [phone], but was not avai lable, so rest of the history was obtained by just reviewing records from [facility] and old records at the [facility]. The patient arrived via EMS due to respiratory distress. Had increased work of breathing for the last 6 hours and had questionable malfunction of his home BiPAP. He arrive d with ambulance on a BiPAP to [facility] and he was noted to not speak much, b ut only nod and gesture and follows simple commands and he was barrel- chested and using his accessor y muscle at which point the decision was made to intubate the patient. Postintubation, the patient w as to be admitted to [facility]; however, they do not have any it risk analyst or coke handling supervisor on the weekend and the hospitalist at [facility] requested transfer after attempting to reach both [facility] and [place], neither whom had any ICU beds. The patient was transferred to [facility] for p ulmonary and intensive care management. PAST MEDICAL HISTORY: As mentioned: 1. History of COPD. 2. Emphysema. 3. Alpha-1 antitrypsin. 4. Depression. 5. Anxiety. 6. Dyslipidemia. 7. History of KS in 2007 with a cardiac cath but no stenting. 8. Borderline diabetes that is diet controlled. 9. Asthma. PAST SURGICAL HISTORY: He has had multiple ankle surgeries bilaterally and appendectomy. HOME MEDICATIONS: Include: 1. Omeprazole 20 mg oral daily. 2. Lipitor 40 mg oral daily. 3. Fluoxetine 40 mg oral daily. 4. Gabapentin 200 mg p.o. t.i.d. 5. Proventil 2 puffs by inhalation every 4 to 6 hours p.r.n. 6. Daliresp 500 mcg oral daily. 7. Colace 100 mg oral p.r.n. 8. Aralast AWAKE OVERNIGHT COUNSELOR 1 dose every week intravenously. 9. Vitamin D3 oral daily. FAMILY HISTORY: Mom due to COPD complications and father due to an KS at age 45. SOCIAL HISTORY: He is a former smoker with 35 pack year history of smoking. No other alcohol or jarvis g use. Unclear about his baseline ADLs. REVIEW OF SYSTEMS: Unable to obtain due to the patient's mental status and intubation. PHYSICAL EXAMINATION VITAL SIGNS: Temperature recorded here at 98.8, heart rate 136, BP 84/63, respiration rate 26, satur ating 94% on vent. Vital signs at [facility] upon arrival showed pulse of 160 and satur ating 95% on BiPAP. Initial BP was 154/131 but dropped significantly throughout the ED course at [facility]. HEAD AND NECK: Atraumatic, normocephalic. Bilateral pupils are reactive. With an ET tube in place, sedated on vent. Neck: Supple. No jugular venous distention. LUNGS: Decreased air entry but otherwise no adventitious lung sounds were appreciated. HEART: S1, S2. Regular. Tachycardia. ABDOMEN: Soft, nontender, nondistended. EXTREMITIES: No cyanosis, clubbing, or edema. DIAGNOSTIC STUDIES/LAB DATA: Initial labs at [facility] showed white count of 10.5, hemoglobin and he matocrit of 13.5 and 44.8, platelet count of 414 and predominant high mono percentage. BMP showed so dium of 141, potassium 4.2, chloride 102, bicarb 32, BUN 16, creatinine 1.1, random glucose 185. Lac tic acid initially elevated at 6.0, which improved to 3.6. Urinalysis was positive for ketones, trac e blood, but no leuk esterase or nitrite was noted. Initial ABG at [facility] showed pH of 6.94 with p CO2 of 143 and oxygenation of 216 on the initial BiPAP. Influenza A and B, both antigens were negati ve. Chest x-ray at [facility] was showing end-stage COPD with an ET tube in place and hyperinflated lungs, I could not appreciate any infectious etiology. EKG showed sinus tachycardia at 138 beats per minute . IMPRESSION: This is a 54-year-old gentleman with chronic obstructive pulmonary disease, alpha-1 anti trypsin, emphysema, intubated for a hypercapnic hypoxic respiratory failure, and severe lactic acidos is likely due to increased work of breathing from his end-stage COPD and COPD exacerbation without an y obvious source of infection at this point. ASSESSMENT AND PLAN: 1. Hypercapnic hypoxic respiratory failure secondary to exacerbation of his chronic obstructive pulm onary disease. We will start the patient on Solu-Medrol IV along with Zosyn and vancomycin. We will consider pulmonary evaluation. 2. Lactic acidosis. Likely secondary to chronic obstructive pulmonary disease exacerbation and incr eased work of breathing. We will get repeat lactic acid upon arrival to the hospital and hydrate the patient accordingly. 3. History of depression and anxiety, on benzos at home at baseline. We will also add a Versed drip on top of the propofol and titrate the propofol off as the patient was noted to be hypotensive. 4. History of dyslipidemia. We will hold statin. 5. History of borderline diabetes. 6. DVT prophylaxis with sequential compression device. 7. Goals of care and code status. We will rediscuss with family in the morning once they are availa ble regarding goals of care as the patient's prognosis at this point is poor. [id number]/CPS #: [id number]
[2019-09-03] MEDS: Chlorhexidine MOUTHWASH 0.12%* 15 ML UDC TOPICAL SCH ×6 (00:13→19:20)
[2019-09-03] MEDS: ZOSYN 3.375 GM Q8H per EXTENDED INFUSION IVPB SCH ×4 (01:10→08:15)
[2019-09-03 05:07] LABS: Hematocrit 40 % (42-52); Hemoglobin 12.7 g/dL (14.0-18.0); Mean Corpuscular HGB Conc 31 g/dL (31-36); Mean Corpuscular Hemoglobin 28 pg (27-31); Mean Corpuscular Volume 88 fL (80-94); Mean Platelet Volume 8.5 fL (7.4-10.4); Platelet Count 250 10^3/uL (150-450); Red Blood Count 4.61 10^6 /uL (4.18-5.48); Red Cell Distribution Width 16 % (10-15)
[2019-09-03 05:14] LABS: ABS Lymphocytes 0.2 10^3/ul (1.0-4.8); ABS Monocytes 1.7 10^3/ul (0-0.8); Lymphocyte % 1.4 %
[2019-09-03 05:19] LABS: BUN/Creatinine Ratio 18.9 (8-20); EGFR African American 59.9 (>60); EGFR Non-African American 49.5 (>60); Potassium 5.6 mmol/L (3.5-5.0)
[2019-09-03] MEDS: methylPREDNISolone SOD 40 MG* 1 ML VIAL IV SCH ×3 (06:39→18:15)
[2019-09-03] MEDS ORDERED: Sodium Bicarbonate 8.4% IV* 50 ML VIAL IV ONE (08:58)
--- NOTE | 2019-09-03 08:59 | PN ---
Date of Service: 09/03/19 - HD 2 Critical Care Services: 54 yo M with a PMH which includes alpha-1 antitrypsin disease and COPD and uses a Trilogy vent at home. He presented to [facility] on [facility]/02 via EMS for increased shortness of breath and increased work of breathing x 5 hours. Only speaking in short sentences secondary to dyspnea. He received 10 mg Decadron en route. Initial vitals BP 139/84, HR 154, RR 46, sat 84% on CPAP. Switched to BiPAP with improvement in sat to 86% however RR remained 44. Minimal improvement with Duonebs. EKG sinus tachycardia. On exam pt noted to be in acute respiratory distress. Pulmonary exam with bilateral wheezing and poor aeration. Heart tachycardic but regular. Lactic acid 6.0. Creatinine 1.1. WBC 10.5. Flu A&B negative. ABG 6.94/143/216/30/-6/99 on BiPAP. Lactic acid improved to 3.6 on repeat after fluid resuscitation. UA negative. CXR hyperinflation consistent with COPD. Central vascular prominence. No focal infiltrate. He failed to improve after an hour on BiPAP and was intubated for acute on chronic hypoxic and hypercarbic respiratory failure. He was transferred to [facility] overnight as [place] did not have an last model department supervisor available for the weekend. Vital Signs: Temp Pulse Resp BP SpO2 FiO2 97.2 F 116 25 117/88 98 25 09/03/19 07:57 09/03/19 06:15 09/03/19 06:00 09/03/19 06:15 09/03/19 06:15 09/03 08:31 Physical Exam: Gen: Resting comfortably HEENT: ETT in place Lungs: Poor air movement. No wheezing or crackles. Using accessory muscles Cardiac: RRR Abdomen: soft, NTND Extremities: warm, dry, no edema Neuro: sedated Fluid Balance (Past 24 Hours): I= O= Net Intake & Output 09/01/19 09/02/19 09/03/19 09/04/19 06:59 06:59 06:59 06:59 Intake Total 4639 Output Total 123 15 Balance 4516 -15 Weight 121 lb 0.54 oz Intake: IV Fluids 4343 NS 4343 IVPB 227 ABX - ZOSYN 227 Medicated IV 19 CC - Propofol/Diprivan 19 Tube Feeding Flush Amount 40 Do Irrigate Amount 10 Output: Do 123 15 Labs: Laboratory Results - last 24 hr 09/02/19 09/02/19 09/02/19 19:48 19:50 20:46 WBC RBC Hgb Hct MCV MCH MCHC RDW Plt Count MPV Neut % (Auto) Lymph % (Auto) [place] % (Auto) Eos % (Auto) Baso % (Auto) Absolute Neuts (auto) Absolute Lymphs (auto) Absolute Monos (auto) Absolute Eos (auto) Absolute Basos (auto) Absolute Nucleated RBC Nucleated RBC % Patient Temperature Not Reportable ABG pH 7.25 L ABG pH (Temp Correct) Not Reportable ABG pCO2 53 H ABG pCO2 (Temp Corrct Not Reportable ABG pO2 115 H ABG pO2 (Temp Correct Not Reportable ABG HCO3 21.3 ABG O2 Saturation 99.7 H ABG Base Excess -4.6 L Respiration Rate 22 Ventilator Type 450 Vent Mode cmv FiO2 30 Inspiratory Time Not Reportable PEEP 5 Pressure Support Not Reportable Pressure Control Not Reportable EPAP Not Reportable IPAP Not Reportable BiPAP Not Reportable Sodium 142 Potassium 6.1 H* Chloride 109 Carbon Dioxide 25 Anion Gap 8 BUN 21 Creatinine 1.43 H Est GFR ( Amer) 62.4 Est GFR (Non-Af Amer) 51.5 BUN/Creatinine Ratio 14.7 Glucose 131 H Lactic Acid Calcium 7.9 L Urine Color Yellow Urine Appearance Cloudy Urine pH 5.0 Ur Specific Leeds 1.018 Urine Protein 2+(100 mg/dl) A Urine Ketones 1+ A Urine Blood 1+ A Urine Nitrate Negative Urine Bilirubin Negative Urine Urobilinogen Negative Ur Leukocyte Esterase Negative Urine WBC (Auto) 2+(11-20/hpf) A Urine RBC (Auto) 1+(3-5/hpf) A Ur Squamous Epith Cells Present A Urine Bacteria Absent Granular Casts Present A Urine Glucose 1+(50 mg/dl) A 09/02/19 09/02/19 09/03/19 20:46 20:46 04:13 WBC 16.8 H RBC 4.64 Hgb 13.0 L Hct 40 L MCV 86 MCH 28 MCHC 33 RDW 15 Plt Count 307 MPV 8.0 Neut % (Auto) 89.1 Lymph % (Auto) 1.2 [place] % (Auto) 9.2 Eos % (Auto) 0.0 Baso % (Auto) 0.5 Absolute Neuts (auto) 15.0 H Absolute Lymphs (auto) 0.2 L Absolute Monos (auto) 1.5 H Absolute Eos (auto) 0.0 Absolute Basos (auto) 0.1 Absolute Nucleated RBC 0.0 Nucleated RBC % 0.1 Patient Temperature ABG pH ABG pH (Temp Correct) ABG pCO2 ABG pCO2 (Temp Corrct ABG pO2 ABG pO2 (Temp Correct ABG HCO3 ABG O2 Saturation ABG Base Excess Respiration Rate Ventilator Type Vent Mode FiO2 Inspiratory Time PEEP Pressure Support Pressure Control EPAP IPAP BiPAP Sodium 144 Potassium 5.6 H Chloride 116 H Carbon Dioxide 18 L Anion Gap 10 BUN 28 H Creatinine 1.48 H Est GFR ( Amer) 59.9 Est GFR (Non-Af Amer) 49.5 BUN/Creatinine Ratio 18.9 Glucose 134 H Lactic Acid 3.0 H* Calcium 7.0 L Urine Color Urine Appearance Urine pH Ur Specific [place] Urine Protein Urine Ketones Urine Blood Urine Nitrate Urine Bilirubin Urine Urobilinogen Ur Leukocyte Esterase Urine WBC (Auto) Urine RBC (Auto) Ur Squamous Epith Cells Urine Bacteria Granular Casts Urine Glucose 09/03/19 09/03/19 04:13 04:13 WBC 17.0 H RBC 4.61 Hgb 12.7 L Hct 40 L MCV 88 MCH 28 MCHC 31 RDW 16 H Plt Count 250 MPV 8.5 Neut % (Auto) 88.5 Lymph % (Auto) 1.4 [place] % (Auto) 10.1 Eos % (Auto) 0.0 Baso % (Auto) 0.0 Absolute Neuts (auto) 15.0 H Absolute Lymphs (auto) 0.2 L Absolute Monos (auto) 1.7 H Absolute Eos (auto) 0.0 Absolute Basos (auto) 0.0 Absolute Nucleated RBC 0.0 Nucleated RBC % 0.0 Patient Temperature ABG pH ABG pH (Temp Correct) ABG pCO2 ABG pCO2 (Temp Corrct ABG pO2 ABG pO2 (Temp Correct ABG HCO3 ABG O2 Saturation ABG Base Excess Respiration Rate Ventilator Type Vent Mode FiO2 Inspiratory Time PEEP Pressure Support Pressure Control EPAP IPAP BiPAP Sodium Potassium Chloride Carbon Dioxide Anion Gap BUN Creatinine Est GFR ( Amer) Est GFR (Non-Af Amer) BUN/Creatinine Ratio Glucose Lactic Acid 2.8 H* Calcium Urine Color Urine Appearance Urine pH Ur Specific [place] Urine Protein Urine Ketones Urine Blood Urine Nitrate Urine Bilirubin Urine Urobilinogen Ur Leukocyte Esterase Urine WBC (Auto) Urine RBC (Auto) Ur Squamous Epith Cells Urine Bacteria Granular Casts Urine Glucose Studies: 09/02 CXR - hyperinflated lungfields without definite evidence of pneumonia 09/02 CT chest, abdomen, pelvis - moderate to severe centrilobar and paraseptal emphysema. Lungs otherwise clear. Do in superior prostatic urethra Nutrition: NPO. Dietary consulted for TF recs Impression: 54 yo M with [id number] disease, COPD and history of prior admissions admitted 09/02 with acute on chronic hypercapnic and hypoxic respiratory failure and COPD exacerbation. Required intubation. Plan: Hospital Diagnoses: #1: Acute on chronic hypoxic and hypercarbic respriatory failure #2: COPD exacerbation #3: Alpha 1 antitrypsin disease #4: Lactic acidosis Cardiovascular: (1) CAD with hx of [place] in 2007; (2) Essential HTN -- HR 90-137 -- SBP 70-142 -- Telemetry -- Atorvastatin Home meds: Atorvastatin Pulmonary: (1) Acute on chronic hypoxic and hypercarbic respriatory failure; (2 ) COPD exacerbation; (3) Alpha 1 antitrypsin disease; (4) Emphysema; (5) Home O2 and Trilogy vent use; (6) hx of heavy smoking (quit 2005) -- RR 19-27 -- sats 94-100 -- vent: @VENTSETTINGS@ -- CXR, 09/02: hyperinflated lungfields without definite evidence of pneumonia -- CT chest, abdomen, pelvis, 09/02: moderate to severe centrilobar and paraseptal emphysema. Lungs otherwise clear. -- ABG: pH 7.14; pCO2 56; pO2 70; HCO3 16.8; BE -10.3; %O2 Sat 93.9 -- PRN Duonebs -- resume home Roflumilast Home meds: Triology vent and 4L home O2, Albuterol, Aralast (Ofhvd-0-Nxcpyvsrkw inhibitor), Spiriva Gastrointestinal: No acute issues -- diet: NPO. consult dietary for TF recs -- bowel regimen: Colace -- ulcer prophylaxis: Protonix Home meds: Omeprazole, Colace, Miralax Endocrine: (1) Type 2 diabetes mellitus -- monitor BGs -- Solumedrol Home meds: None Renal: (1) Prerenal azotemia; (2) Hyperkalemia; (3) Hypocalcemia -- UOP: 10 ml/hr + unmeasured (leaking around do- do to be repositioned) -- Cr 1.48 from 1.43, continue hydration, follow trend -- Lytes Na 144 from 142 K 5.6 from 6.1, continue hydration, currently asymptomatic Ca 7.0, replace Mag ordered Phos ordered -- IVF: NaHCO3 @ 100 ml/hr Home meds: None Infectious disease: (1) Sepsis -- Tmax 99.0 -- WBC 17.0 from 16.8 -- Micro / blood ordered sputum ordered Legionella ordered Strep pneumo ordered 09/02 UA Negative at [place] Flu A&B negative at [place] MRSA positive -- ABX Rocephin Azithromycin Home meds: None Neurologic: (1) chronic anxiety -- Versed gtt for sedation -- PRN Morphine for pain control -- resume home Fluoxetine and Gabapentin Home meds: Fluoxetine, Gabapentin, PRN Clonazepam, Meclizine Hematological: (1) Anemia -- Hgb 12.7 from 13.0, follow trend -- Plt 250 from 307 -- DVT prophylaxis: SQ Heparin Home meds: Cholecalciferol Metabolic: (1) Lactic acidosis -- Lactic acid 2.8 from 3.0, continue IV hydration, follow trend Home meds: None Other: No acute issues Home meds: Fosamax Deep vein thrombosis prophylaxis: SQ Heparin Dietary: Protonix Condition: Critical Prognosis: Guarded Code status: Full (trial of intubation) Disposition: continue ICU care Cumulative time spent in the care of this patient (excluding any procedure time) : at least 65 minutes. Patient care included clinical interview (with patient and/or family), bedside exam of the patient, review of labs, x-rays, and other ancillary data, coordination of (respiratory, nursing care, review of patient's records, discussion regarding patients management with involved consultants, primary physician, pharmacists, and other healthcare personnel (dietary, case management , physical/occupational therapy etc.) Critical Care Time: 65 min
[2019-09-03] MEDS ORDERED: Docusate LIQ* 100 MG/10 ML UDC PO PRN (09:13)
[2019-09-03] MEDS: Morphine INJ* 4 MG/ML 1 ML SYRINGE (NEW SYRINGE VERSION) IV PRN (09:17)
[2019-09-03] MEDS: Lactated Ringers 1000 ML Bag* 1,000 ML IV SCH ×2 (09:27→15:38)
[2019-09-03] MEDS ORDERED: Calcium Gluconate INJ* 1 GM in NS 0.9% 50 ML* 50 ML IVPB ONE (09:45)
[2019-09-03] MEDS: Azithromycin 500 mg/250 ml NS 500 MG/250 ML BAG IVPB SCH (10:11)
[2019-09-03] MEDS: Sodium Bicarbonate 8.4% IV* 150 MEQ in D5W 1000 ML BAG* 850 ML IV SCH ×2 (10:29→19:20)
[2019-09-03] MEDS ORDERED: Vancomycin(*) 750 MG in NS 0.9% 250 ML* 250 ML IVPB SCH (10:30)
[2019-09-03 11:09] LABS: Magnesium 1.4 mg/dL (1.9-2.7); Phosphorus 4.9 mg/dL (2.5-5.0)
[2019-09-03] MEDS ORDERED: Norepinephrine 16MCG/ML IVPRE* 0 MCG/0 ML BAG IV ONE (11:27)
[2019-09-03] MEDS ORDERED: Magnesium Sulfate 2 GM IV* 2 GM/50 ML BAG IVPB ONE (11:40)
[2019-09-03] MEDS: Phenylephrine 10 MG/ML VIAL* 50 MG in NS 0.9% 250 ML* 245 ML IV SCH ×2 (11:46→20:01)
[2019-09-03] MEDS ORDERED: Norepinephrine 16MCG/ML IVPRE* 4,000 MCG/250 ML BAG IV SCH (12:00)
[2019-09-03] MEDS: cefTRIAXone(*) 1 GM in NS 0.9% 50 ML* 50 ML IVPB SCH (12:44)
[2019-09-03] MEDS: Gabapentin CAP(*) 100 MG PO SCH ×2 (15:19→20:24)
[2019-09-03] MEDS: Heparin VIAL(*) 5000 UNITS/ML VIAL (FIVE THOUSAND) SUBCUT SCH ×2 (15:20→22:03)
[2019-09-03] MEDS ORDERED: Sodium Bicarbonate 8.4%* 50 ML SYRINGE IV ONE (15:30)
[2019-09-03] MEDS ORDERED: Lactated Ringers 1000 ML Bag* 1,000 ML IV SCH ×2 (16:00→16:16)
[2019-09-03] MEDS: Midazolam IV for DRIP* 100 MG in NS 0.9% 100 ML* 80 ML IV SCH ×2 (17:38→22:02)
[2019-09-03 18:48] LABS: BUN/Creatinine Ratio 15.9 (8-20); Calcium 7.1 mg/dL (8.6-10.3); EGFR African American 37.9 (>60); EGFR Non-African American 31.3 (>60); Potassium 4.4 mmol/L (3.5-5.0)
[2019-09-03] MEDS: Pantoprazole IV* 40 MG IV SCH (20:24)
[2019-09-03] MEDS: Albuterol/Ipratropium NEB.SOL* Albuterol 2.5 MG/Ipratropium 0.5 MG 3 ML INH PRN (20:28)
[2019-09-03] MEDS ORDERED: Atorvastatin* 40 MG TAB PO SCH (21:00)
[2019-09-03] MEDS ORDERED: Dextrose 50% VIAL 50 ml IV PUSH PRN (21:31)
[2019-09-04] MEDS: Chlorhexidine MOUTHWASH 0.12%* 15 ML UDC TOPICAL SCH ×5 (00:04→15:51)
[2019-09-04] MEDS: Insulin LISPRO* 1 UNITS UNIT SUBCUT SCH ×5 (00:07→16:44)
[2019-09-04] MEDS: methylPREDNISolone SOD 40 MG* 1 ML VIAL IV SCH ×3 (00:08→13:50)
[2019-09-04] MEDS: Albuterol/Ipratropium NEB.SOL* Albuterol 2.5 MG/Ipratropium 0.5 MG 3 ML INH PRN (03:32)
[2019-09-04] MEDS: Phenylephrine 10 MG/ML VIAL* 50 MG in NS 0.9% 250 ML* 245 ML IV SCH ×2 (04:23→18:17)
[2019-09-04] MEDS: Sodium Bicarbonate 8.4% IV* 150 MEQ in D5W 1000 ML BAG* 850 ML IV SCH ×2 (04:23→15:21)
[2019-09-04] MEDS: Heparin VIAL(*) 5000 UNITS/ML VIAL (FIVE THOUSAND) SUBCUT SCH (05:49)
[2019-09-04 05:50] LABS: Hematocrit 32 % (42-52); Hemoglobin 10.5 g/dL (14.0-18.0); Mean Corpuscular HGB Conc 32 g/dL (31-36); Mean Corpuscular Hemoglobin 28 pg (27-31); Mean Corpuscular Volume 86 fL (80-94); Platelet Count 190 10^3/uL (150-450); Red Blood Count 3.76 10^6 /uL (4.18-5.48); Red Cell Distribution Width 16 % (10-15); White Blood Count 18.5 10^3/uL (3.5-10.8)
[2019-09-04 06:17] LABS: BUN/Creatinine Ratio 13.2 (8-20); Calcium 6.6 mg/dL (8.6-10.3); EGFR African American 25.5 (>60); EGFR Non-African American 21.1 (>60); Phosphorus 6.9 mg/dL (2.5-5.0); Potassium 3.8 mmol/L (3.5-5.0)
[2019-09-04 06:28] LABS: Vancomycin Trough 7.4 mcg/mL
[2019-09-04] MEDS ORDERED: Calcium Gluconate INJ* 2 GM in NS 0.9% 100 ML* 100 ML IV ONE (07:00)
[2019-09-04] MEDS: Gabapentin CAP(*) 100 MG PO SCH ×2 (08:30→13:49)
[2019-09-04] MEDS: cefTRIAXone(*) 1 GM in NS 0.9% 50 ML* 50 ML IVPB SCH (08:30)
--- NOTE | 2019-09-04 08:49 | PN ---
Date of Service: 09/04/19 - HD 2 Critical Care Services: 54 yo M with a PMH which includes alpha-1 antitrypsin disease and COPD and uses a Trilogy vent at home. He presented to [facility] on 09/02 via EMS for increased shortness of breath and increased work of breathing x 5 hours. Only speaking in short sentences secondary to dyspnea. He received 10 mg Decadron en route. Initial vitals BP 139/84, HR 154, RR 46, sat 84% on CPAP. Switched to BiPAP with improvement in sat to 86% however RR remained 44. Minimal improvement with Duonebs. EKG sinus tachycardia. On exam pt noted to be in acute respiratory distress. Pulmonary exam with bilateral wheezing and poor aeration. Heart tachycardic but regular. Lactic acid 6.0. Creatinine 1.1. WBC 10.5. Flu A&B negative. ABG 6.94/143/216/30/-6/99 on BiPAP. Lactic acid improved to 3.6 on repeat after fluid resuscitation. UA negative. CXR hyperinflation consistent with COPD. Central vascular prominence. No focal infiltrate. He failed to improve after an hour on BiPAP and was intubated for acute on chronic hypoxic and hypercarbic respiratory failure. He was transferred to [facility] overnight as [place] did not have an integration developer available for the weekend. 09/03: Started on Neosynephrine. Persistent combined metabolic and respiratory acidosis. Poor urine output despite IVF boluses. Avalos exchanged for coudet catheter. 09/04: Continuing to require vasopressors for BP support. Lactic acid finally clearing but UOP remains poor and creatinine climbing. Vital Signs: Temp Pulse Resp BP SpO2 FiO2 98.2 F 130 24 99/76 99 40 09/04/19 07:46 09/04/19 07:00 09/04/19 07:16 09/04/19 07:00 09/04/19 07:00 09/04 07:50 Physical Exam: Gen: Resting comfortably HEENT: ETT in place Lungs: Distant, poor air movement. No wheezes or rhonci. Using accessory muscles despite vent support (on multiple modes). Cardiac: Tachycardic, regular Abdomen: soft, NTND Extremities: warm, dry, no edema Neuro: sedated Fluid Balance (Past 24 Hours): I= O= Net Intake & Output 09/02/19 09/03/19 09/04/19 09/05/19 06:59 06:59 06:59 06:59 Intake Total 4639 5733 Output Total 123 275 0 Balance 4516 5458 0 Weight 121 lb 0.54 oz 132 lb 0.91 oz Intake: IV Fluids 4343 3404 LR 1000 NS 4343 191 Sodium Bicarb 1779 abx 434 IVPB 227 1664 ABX - ZOSYN 227 LR 1000 Mag 60 Sodium Bicarb 544 calcium gluconate 60 Medicated IV 19 505 CC - Propofol/Diprivan 19 phenylephrine 505 Tube Feeding Flush Amount 40 100 Avalos Irrigate Amount 10 60 Output: Avalos 123 275 0 Labs: Laboratory Results - last 24 hr 09/03/19 09/03/19 09/03/19 08:30 10:18 10:18 WBC RBC Hgb Hct MCV MCH MCHC RDW Plt Count MPV D-Dimer, Quantitative Patient Temperature ABG pH 7.14 L* ABG pH (Temp Correct) Not Reportable ABG pCO2 56 H ABG pCO2 (Temp Corrct Not Reportable ABG pO2 70 L ABG pO2 (Temp Correct Not Reportable ABG HCO3 16.8 L ABG O2 Saturation 93.9 L ABG Base Excess -10.3 L Respiration Rate O2 Delivery Device Ventilator Type Vent Mode FiO2 Inspiratory Time PEEP Pressure Support Pressure Control EPAP IPAP BiPAP Sodium Potassium Chloride Carbon Dioxide Anion Gap BUN Creatinine Est GFR ( Amer) Est GFR (Non-Af Amer) BUN/Creatinine Ratio Glucose POC Glucose (mg/dL) Lactic Acid 2.6 H* Calcium Phosphorus 4.9 Magnesium 1.4 L Vancomycin Trough 09/03/19 09/03/19 09/03/19 14:30 15:30 15:30 WBC RBC Hgb Hct MCV MCH MCHC RDW Plt Count MPV D-Dimer, Quantitative Patient Temperature Not Reportable ABG pH 7.12 L* ABG pH (Temp Correct) Not Reportable ABG pCO2 63 H ABG pCO2 (Temp Corrct Not Reportable ABG pO2 166 H ABG pO2 (Temp Correct Not Reportable ABG HCO3 17.5 L ABG O2 Saturation 100.0 H ABG Base Excess -9.6 L Respiration Rate 14 O2 Delivery Device vent Ventilator Type Not Reportable Vent Mode pcv FiO2 40 Inspiratory Time .6 PEEP 5 Pressure Support Not Reportable Pressure Control 28 EPAP Not Reportable IPAP Not Reportable BiPAP Not Reportable Sodium Potassium Chloride Carbon Dioxide Anion Gap BUN Creatinine Est GFR ( Amer) Est GFR (Non-Af Amer) BUN/Creatinine Ratio Glucose POC Glucose (mg/dL) Lactic Acid 3.2 H* Calcium Phosphorus Magnesium 2.2 Vancomycin Trough 09/03/19 09/03/19 09/03/19 18:21 18:21 18:21 WBC RBC Hgb Hct MCV MCH MCHC RDW Plt Count MPV D-Dimer, Quantitative > 1050 H Patient Temperature ABG pH ABG pH (Temp Correct) ABG pCO2 ABG pCO2 (Temp Corrct ABG pO2 ABG pO2 (Temp Correct ABG HCO3 ABG O2 Saturation ABG Base Excess Respiration Rate O2 Delivery Device Ventilator Type Vent Mode FiO2 Inspiratory Time PEEP Pressure Support Pressure Control EPAP IPAP BiPAP Sodium 146 H Potassium 4.4 Chloride 111 Carbon Dioxide 29 Anion Gap 6 BUN 35 H Creatinine 2.20 H Est GFR ( Amer) 37.9 Est GFR (Non-Af Amer) 31.3 BUN/Creatinine Ratio 15.9 Glucose 240 H POC Glucose (mg/dL) Lactic Acid 2.2 H* Calcium 7.1 L Phosphorus Magnesium Vancomycin Trough 09/03/19 09/04/19 09/04/19 23:52 00:03 04:05 WBC RBC Hgb Hct MCV MCH MCHC RDW Plt Count MPV D-Dimer, Quantitative Patient Temperature ABG pH ABG pH (Temp Correct) ABG pCO2 ABG pCO2 (Temp Corrct ABG pO2 ABG pO2 (Temp Correct ABG HCO3 ABG O2 Saturation ABG Base Excess Respiration Rate O2 Delivery Device Ventilator Type Vent Mode FiO2 Inspiratory Time PEEP Pressure Support Pressure Control EPAP IPAP BiPAP Sodium Potassium Chloride Carbon Dioxide Anion Gap BUN Creatinine Est GFR ( Amer) Est GFR (Non-Af Amer) BUN/Creatinine Ratio Glucose POC Glucose (mg/dL) 215 H 194 H Lactic Acid 1.8 Calcium Phosphorus Magnesium Vancomycin Trough 09/04/19 09/04/19 09/04/19 05:34 05:34 05:34 WBC 18.5 H RBC 3.76 L Hgb 10.5 L Hct 32 L MCV 86 MCH 28 MCHC 32 RDW 16 H Plt Count 190 MPV 9.0 D-Dimer, Quantitative Patient Temperature ABG pH ABG pH (Temp Correct) ABG pCO2 ABG pCO2 (Temp Corrct ABG pO2 ABG pO2 (Temp Correct ABG HCO3 ABG O2 Saturation ABG Base Excess Respiration Rate O2 Delivery Device Ventilator Type Vent Mode FiO2 Inspiratory Time PEEP Pressure Support Pressure Control EPAP IPAP BiPAP Sodium 147 H Potassium 3.8 Chloride 108 Carbon Dioxide 32 Anion Gap 7 BUN 41 H Creatinine 3.10 H Est GFR ( Amer) 25.5 Est GFR (Non-Af Amer) 21.1 BUN/Creatinine Ratio 13.2 Glucose 160 H POC Glucose (mg/dL) Lactic Acid 1.8 Calcium 6.6 L Phosphorus 6.9 H Magnesium 2.0 Vancomycin Trough 7.4 09/04/19 09/04/19 05:47 07:06 WBC RBC Hgb Hct MCV MCH MCHC RDW Plt Count MPV D-Dimer, Quantitative Patient Temperature Not Reportable ABG pH 7.16 L* ABG pH (Temp Correct) Not Reportable ABG pCO2 89 H* ABG pCO2 (Temp Corrct Not Reportable ABG pO2 123 H ABG pO2 (Temp Correct Not Reportable ABG HCO3 25.2 ABG O2 Saturation 99.7 H ABG Base Excess 0.3 Respiration Rate 20 O2 Delivery Device vent Ventilator Type Not Reportable Vent Mode pcv FiO2 40 Inspiratory Time 0.60 PEEP 8 Pressure Support Not Reportable Pressure Control 32 EPAP Not Reportable IPAP Not Reportable BiPAP Not Reportable Sodium Potassium Chloride Carbon Dioxide Anion Gap BUN Creatinine Est GFR ( Amer) Est GFR (Non-Af Amer) BUN/Creatinine Ratio Glucose POC Glucose (mg/dL) 198 H Lactic Acid Calcium Phosphorus Magnesium Vancomycin Trough Studies: 09/04 CXR - read pending. Prominent pulmonary vasculature. / CXR - hyperinflated lungfields without definite evidence of pneumonia 1/ CT chest, abdomen, pelvis - moderate to severe centrilobar and paraseptal emphysema. Lungs otherwise clear. Avalos in superior prostatic urethra Nutrition: start TF Impression: 54 yo M with [id number] disease, COPD and history of prior admissions admitted / with acute on chronic hypercapnic and hypoxic respiratory failure and COPD exacerbation. Required intubation. Plan: Hospital Diagnoses: #1: Acute on chronic hypoxic and hypercarbic respriatory failure #2: COPD exacerbation #3: Acute renal failure #4: Septic shock Cardiovascular: (1) Septic shock; (2) CAD with hx of LA in 2007; (3) Chronic essential HTN -- HR 115-131 -- SBP 79-125 -- Telemetry -- TTE completed, read pending. Bedside cardiac echo last night showed ventricles of normal size and hyperdynamic. There did not appear to be right heart strain -- Vasopressors Neosynephrine @ 50, titrate to MAP > 60 -- Atorvastatin Home meds: Atorvastatin Pulmonary: (1) Acute on chronic hypoxic and hypercarbic respriatory failure; (2 ) COPD exacerbation; (3) Alpha 1 antitrypsin disease; (4) Emphysema; (5) Home O2 and Trilogy vent use; (6) hx of heavy smoking (quit 2005) -- RR 19-27 -- sats 94-100 -- vent: PCV PC 32 PEEP 8 RR 24 FiO2 40 -- CXR, 09/02: hyperinflated lungfields without definite evidence of pneumonia -- CT chest, abdomen, pelvis, 09/02: moderate to severe centrilobar and paraseptal emphysema. Lungs otherwise clear. -- ABG: pH 7.16; pCO2 89; pO2 123; HCO3 25.2; BE 0.3 (improved from -9); %O2 Sat 99.7 -- PRN Duonebs -- resume home Roflumilast -- given shock, and hypoxia and hypercarbia on admission, PE is a possible etiology. Given his acute renal failure I am hesitant to proceed with CTA to rule out PE. He isn't a candidate for VQ as he is on a ventilator. DDimer elevated. Will empirically start heparin gtt as he does not have any contraindications to anticoagulation and I feel this is the option with least risk as compared to alternatives. Awaiting formal TTE report. If this is a hemodynamically significant PE I would expect to see right heart strain on that echo. Home meds: Triology vent and 4L home O2, Albuterol, Roflumilast, Aralast (Alpha- 1-Proteinase inhibitor), Spiriva Gastrointestinal: No acute issues -- diet: NPO. consult dietary for TF recs -- bowel regimen: Colace -- ulcer prophylaxis: Protonix Home meds: Omeprazole, Colace, Miralax Endocrine: (1) Type 2 diabetes mellitus -- monitor BGs -- Solumedrol -- SSI Home meds: None Renal: (1) Acute renal failure; (2) Hyperkalemia, resolved; (3) Hypocalcemia; ( 4) Hypernatremia; (5) hyperphosphatemia -- UOP: 11 ml/hr -- Cr 3.10 from 2.20, continue hydration, follow trend -- Lytes Na 147 from 146, follow trend, once no longer requiring HCO3 gtt will switch to more 1/2NS IVF K 3.8 Ca 6.6, replaced Mag 2.0 Phos 6.9 -- IVF: NaHCO3 @ 100 ml/hr -- Consult nephrology Home meds: None Infectious disease: (1) Sepsis; (2) Presumed pneumonia -- Tmax 100.0 -- WBC 18.5 from 17.0 -- Micro 1/4 blood in process sputum 1+ GPC intracellular, speciation pending Legionella Negative Strep pneumo Negative Urine Negative 1/3 UA Negative at [place] Flu A&B negative at [place] MRSA positive -- ABX Rocephin Azithromycin Home meds: None Neurologic: (1) chronic anxiety -- Versed gtt for sedation -- PRN Morphine for pain control -- home Fluoxetine and Gabapentin Home meds: Fluoxetine, Gabapentin, PRN Clonazepam, Meclizine Hematological: (1) Anemia -- US BLE veins ordered to rule out DVT -- Hgb 10.5 from 12.7, dilutional -- Plt 190 from 250 -- DDimer >1050 -- DVT prophylaxis: SQ Heparin Home meds: Cholecalciferol Metabolic: (1) Lactic acidosis -- Lactic acid 2.8 from 3.0, continue IV hydration, follow trend Home meds: None Other: No acute issues Home meds: Fosamax Deep vein thrombosis prophylaxis: SQ Heparin Dietary: Protonix Condition: Critical Prognosis: Guarded Code status: Full (trial of intubation) Disposition: continue ICU care Cumulative time spent in the care of this patient (excluding any procedure time) : at least 60 minutes. Patient care included clinical interview (with patient and/or family), bedside exam of the patient, review of labs, x-rays, and other ancillary data, coordination of (respiratory, nursing care, review of patient's records, discussion regarding patients management with involved consultants, primary physician, pharmacists, and other healthcare personnel (dietary, case management , physical/occupational therapy etc.) Critical Care Time: 60 min
[2019-09-04] MEDS ORDERED: Fluoxetine LIQ* 20 MG/5 ML UDC PO SCH (09:00)
[2019-09-04] MEDS ORDERED: ROFLUMILAST 500 MCG PO SCH (09:00)
[2019-09-04] MEDS ORDERED: Vancomycin Trough Check NOTE FOLLOW UP ONE (10:00)
[2019-09-04] MEDS ORDERED: Heparin DRIP 25,000 UNITS(*) 25,000 UNITS/500 ML BAG IV SCH (10:00)
[2019-09-04] MEDS: Azithromycin 500 mg/250 ml NS 500 MG/250 ML BAG IVPB SCH (10:23)
[2019-09-04] MEDS ORDERED: Heparin VIAL(*) 5000 UNITS/ML VIAL (FIVE THOUSAND) IV SCH (11:00)
--- NOTE | 2019-09-04 11:09 | ECHO ---
*[facility]* [place] [address] Fax #: [phone] Transthoracic Echocardiogram Patient: Thomas Franklin : 1965 Study Date: 09/04/2019 Age: 54 Gender: M HR: 127 bpm Height: 65 in /165.1 cm BSA: 1.6 m^2 Weight: 120.7 lb /54.9 kg BMI: 20.1 kg/m^2 *Surgical Attendant: * Lu Carmona RDCS RN *Referring Physician: * Yovanny Manzano *Reading Physician: * Solitario Giordano MD Indications: Resp Insufficiency. History: Chronic obstructive pulmonary disease. Emphysema. Asthma. Alpha-1 antitrypsin. [place] in 2008. Risk factors: Former tobacco use. Diabetes mellitus. Dyslipidemia. Conclusions Summary: - Left ventricle: The cavity size is normal. There is mild to moderate concentric left ventricular hypertrophy. Systolic function is severely reduced. The estimated ejection fraction is 20-25%. There is severe global hypokinesis. Severe hypokinesis to akinesis of the mid-apical myocardium seen. The basal segments show best function. - Normal cardiac chamber sizes. - Functionally benign heart valves. - Pulmonary arteries: Systolic pressure is mildly to moderately increased, estimated to be 44 mm Hg. - There is no prior echocardiogram available to compare with at this time. Study data: Transthoracic echocardiogram. Procedure: Transthoracic echocardiography was performed. Image quality was fair. The study was technically limited due to body habitus and COPD. All images were obtained from the subcostal position. Doppler angles are suboptimal. The patient is on a ventilator at the time of the study. Complete 2D, spectral Doppler, and color flow Doppler. Location: ICU Patient status: Inpatient. Patient room number: ICU 9. Rhythm: Tachycardia. Findings Left ventricle: The cavity size is normal. There is mild to moderate concentric left ventricular hypertrophy. Systolic function is severely reduced. The estimated ejection fraction is 20-25%. Regional wall motion abnormalities: There is severe global hypokinesis. Severe hypokinesis to akinesis of the mid-apical myocardium seen. The basal segments show best function. Left ventricular diastolic function parameters are indeterminate. Right ventricle: The cavity size is normal. Systolic function is normal. Left atrium: The atrium is normal in size. Right atrium: The atrium is normal in size. Mitral valve: The leaflets are mildly thickened. There is trace to mild regurgitation. Aortic valve: The valve is trileaflet. The leaflets are mildly thickened. There is no evidence of stenosis. There is trace regurgitation. Tricuspid valve: The leaflets are normal thickness. There is trace to mild regurgitation. Pulmonic valve: Not well visualized. There is no evidence of stenosis. There is no regurgitation. Aorta: Aortic root: The aortic root is not dilated. Ascending aorta: The ascending aorta is poorly visualized. Aortic arch: The aortic arch is not visualized. Pericardium: There is no pericardial effusion. Pulmonary arteries: Not well visualized. Systolic pressure is mildly to moderately increased, estimated to be 44 mm Hg. Systemic veins: Inferior vena cava: The vessel is normal in size. Evaluation of the inferior vena cava is limited as the patient is on a ventilator. Measurements Left ventricle Value Ref Aortic valve Value Ref ANGELICA, LAX 4.8 cm 4.2 - 5.8 Randy diam, ED 2.1 cm ----- ESD, LAX 3.5 cm 2.5 - 4.0 Peak v, S 1.1 m/sec ----- FS, LAX 27 % 25 - 43 VTI, S 17.3 cm ----- PW, ED 0.8 cm 0.6 - 1.0 Mean grad, S 3.0 mm Hg ----- IVS/PW, ED 1.62 Peak grad, S 5.0 mm Hg ----- PW/ID, ED 0.16 LVOT/AV, VTI ratio 0.51 ----- E', med randy, TDI 9.0 cm/sec >=7.0 E/e', med randy, 9 Mitral valve Value Ref TDI Peak E 0.8 m/sec ----- Decel time 137 ms ----- LVOT Value Ref Peak grad, D 2.6 mm Hg ----- Peak catherine, S 0.65 m/sec VTI, S 8.8 cm Pulmonic valve Value Ref Mean grad, S 1 mm Hg Peak v, S 0.92 m/sec ----- Peak grad, S 3.0 mm Hg ----- Ventricular septum Value Ref IVS, ED (H) 1.2 cm 0.6 - 1.0 Tricuspid valve Value Ref TR peak v (H) 3 m/sec <=2.8 Right ventricle Value Ref Peak RV-RA grad, S 36 mm Hg ----- ANGELICA, LAX 2.9 cm Pressure, S 44 mm Hg Aortic root Value Ref Root diam 3.4 cm <3.8 Left atrium Value Ref AP dim, ES (L) 2.70 cm 3.00 - Pulmonary artery Value Ref 4.00 Pressure, S 44.0 mm Hg ----- ML dim, A4C 4.4 cm SI dim, A4C 4.6 cm Inferior vena cava Value Ref Diam 1.9 cm ----- Right atrium Value Ref ML dim, ES, A4C 3.6 cm 2.6 - 4.4 SI dim, ES, A4C 4.0 cm 3.4 - 5.3 Estimated RAP 8 mm Hg Legend: (L) and (H) peña values outside specified reference range. Prepared and electronically signed by Solitario Giordano MD 09/04/2019 11:09
[2019-09-04 11:13] LABS: Albumin/Globulin Ratio 1.6 (1-3); Alkaline Phosphatase 43 U/L (34-104); BUN/Creatinine Ratio 12.8 (8-20); Blood Urea Nitrogen 43 mg/dL (6-24); CO2 Carbon Dioxide 35 mmol/L (22-32); Calcium 9.3 mg/dL (8.6-10.3); Chloride 105 mmol/L (101-111); EGFR African American 23.2 (>60); EGFR Non-African American 19.2 (>60); Globulin 1.9 g/dL (2-4); Glucose 177 mg/dL (70-100); Potassium 3.7 mmol/L (3.5-5.0); Total Protein 4.9 g/dL (6.4-8.9)
[2019-09-04 11:17] LABS: Anion Gap 7 mmol/L (2-11); Sodium 147 mmol/L (135-145); Urine Benzodiazepine Screen Presumptive Positive (None Detect); Urine Opiates Screen Presumptive Positive (None Detect)
[2019-09-04 11:30] LABS: ALT 2868 U/L (7-52); AST 3341 U/L (13-39)
[2019-09-04] MEDS ORDERED: DOBUTamine 2000 MCG/ML IVPREMX 500 MG/250 ML BAG IV ONE (11:45)
[2019-09-04] MEDS ORDERED: DOBUTamine 2000 MCG/ML IVPREMX 500 MG/250 ML BAG IV SCH (12:00)
[2019-09-04 12:21] LABS: Troponin I 1.76 ng/mL (<0.03)
[2019-09-04 12:47] LABS: Acetaminophen < 15 mcg/mL; Salicylate < 2.50 mg/dL (<30)
--- NOTE | 2019-09-04 16:38 | CONS ---
CARDIOLOGY CONSULTATION: DATE OF CONSULT: 09/04/19 REFERRAL PHYSICIAN: Dr. Ekaterina Chowdhury. REASON FOR CONSULT: Severe cardiomyopathy in a patient admitted with respiratory failure. HISTORY OF PRESENT ILLNESS: Mr. Franklin is a 54-year-old gentleman, currently intubated, mechanically ventilated. He was apparently admitted to [facility] on 09/02/19 with respiratory failure at [facility] and was then transferred to [facility]. He has a history of COPD, emphysema, alpha-1 antitrypsin deficiency, and some cardiac disease, details unknown. Today, he had an echocardiogram at our institution, which showed an ejection fraction of 20% to 25% with severe hypokinesis to akinesis of the mid apical myocardium and best movement in the basal segments.No prior echo available to compare with. PAST MEDICAL HISTORY: Significant for: 1. COPD. 2. Alpha-1 antitrypsin deficiency. 3. Cardiac disease with reports of RI in the past, but no PCI. Further details unknown. He follows with Dr. Jennifer Sandoval of [facility]. 4. GERD. 5. HLD. 6. Depression. OUTPATIENT MEDICATIONS: 1. Omeprazole 20 mg once a day. 2. Lipitor 40 mg p.o. once a day. 3. Fluoxetine 40 mg p.o. once a day. 4. Gabapentin 200 mg p.o. t.i.d. 5. Proventil 2 puffs. 6. Vitamin D3. FAMILY HISTORY: Unable to obtain as the patient is currently intubated and mechanically ventilated. SOCIAL HISTORY: Unable to obtain as the patient is currently intubated and mechanically ventilated. REVIEW OF SYSTEMS: Unable to obtain as the patient is currently intubated and mechanically ventilated. PHYSICAL EXAM: Pulse is 130, blood pressure 98/72 while on dobutamine and Manjinder- Synephrine, O2 saturation 100%, end-tidal CO2 of 59, temperature 99.5 degrees Fahrenheit. On general exam, he is a chronically ill-appearing gentleman who is intubated. He does not appear to be in distress, but he is not very responsive. HEENT shows cranium is normocephalic and atraumatic. He has dry mucosal membranes. Neck vein assessment is not accurate due to his positive pressure ventilation use. No carotid bruits. Visible skin warm and perfused. Unable to assess affect. Lungs are clear to auscultation anteriorly. No wheezes. There are distant breath sounds with prolonged expiratory phase. Cardiac Exam: S1, S2. Regular rate. No significant murmurs, rubs, or gallops. PMI is nondisplaced. Abdomen soft, nondistended, appears benign. Extremities: Without significant edema. Pulses appear grossly intact. DIAGNOSTIC STUDIES/LAB DATA: White blood cell count 18.5, hematocrit 32, platelet count 190. Blood gas earlier today 7.16, pCO2 of 89, pO2 of 123. Sodium 147, potassium 3.7, chloride 105, bicarbonate 35, BUN 43, creatinine 3.37. Troponin 1.76. Echocardiogram done earlier today as described above. A 12-lead EKG completed 09/02/19 at [facility] shows sinus tachycardia with left axis deviation, poor R-wave progression, heart rate 138. IMPRESSION: Mr. Franklin is a 54-year-old gentleman with complex medical history including alpha-1 antitrypsin deficiency, COPD, respiratory failure, renal insufficiency, and cardiac disease with further details unknown, now admitted with multisystem organ failure including respiratory failure and severe renal insufficiency, and per staff, he is essentially oliguric. He is also found to have severe cardiomyopathy, unclear if new. RECOMMENDATIONS: 1. Current full supportive therapy as per ICU. Once off pressor therapy, could trial him on usual cardiomyopathic medical treatment with beta-blockers and FLORIAN inhibitors and follow up with his usual mirror silverer, Dr. Jennifer Sandoval, including decision about repeat ischemic evaluation if felt indicated as an outpatient. 2. Other management including regarding respiratory failure, renal failure, as per Dr. Chowdhury of [facility] and the patient is being considered for transfer to another facility where [facility] is available. The case was discussed with Dr. Chowdhury. Dear Dr. Chowdhury, many thanks for this kind cardiac consultation opportunity. Please do not hesitate contact me if you have any questions or concerns regarding the patient's cardiovascular consultative care. [id number]/[facility] #: [id number] [facility]
[2019-09-04 16:59] LABS: Troponin I 1.61 ng/mL (<0.03)
[2019-09-04 17:08] VITALS: BP 104/68
--- NOTE | 2019-09-04 17:18 | DCNOTE ---
Date of Admission: 09/02/2019 Date of Discharge: 09/04/2019 Admitting physician: Discharge Physician: Ekaterina Chowdhury MD Code status: FULL (trial of intubation) Hospital diagnoses: - Acute on chronic hypoxic and hypercarbic respriatory failure - COPD exacerbation - Acute renal failure - Septic shock - [id number] disease - Emphysema - Type 2 diabetes mellitus (diet controlled) - Hypocalemia - Hypernatremia - Hyperkalemia - Hyperphosphatemia - Possible pneumonia - Anemia - Lactic acidosis Brief history of presentation and hospital course: 54 yo M with a PMH which includes alpha-1 antitrypsin disease and COPD and uses a Trilogy vent at home. He presented to [facility] on 09/02 via EMS for increased shortness of breath and increased work of breathing x 5 hours. Only speaking in short sentences secondary to dyspnea. He received 10 mg Decadron en route. Initial vitals BP 139/84, HR 154, RR 46, sat 84% on CPAP. Switched to BiPAP with improvement in sat to 86% however RR remained 44. Minimal improvement with Duonebs. EKG sinus tachycardia. On exam pt noted to be in acute respiratory distress. Pulmonary exam with bilateral wheezing and poor aeration. Heart tachycardic but regular. Lactic acid 6.0. Creatinine 1.1. WBC 10.5. Flu A&B negative. ABG 6.94/143/216/30/-6/99 on BiPAP. Lactic acid improved to 3.6 on repeat after fluid resuscitation. UA negative. CXR hyperinflation consistent with COPD. Central vascular prominence. No focal infiltrate. He failed to improve after an hour on BiPAP and was intubated for acute on chronic hypoxic and hypercarbic respiratory failure. He was transferred to [facility] overnight as [facility] did not have an singing telegram performer available for the weekend. 09/03: Started on Neosynephrine. Persistent combined metabolic and respiratory acidosis. Poor urine output despite IVF boluses. Avalos exchanged for coudet catheter. 09/04: Continuing to require vasopressors for BP support. Lactic acid finally clearing but UOP remains poor and creatinine climbing. Transferred to [facility] for [facility]. Physical Exam: Gen: Resting comfortably HEENT: ETT in place Lungs: Distant, poor air movement. No wheezes or rhonci. Using accessory muscles despite vent support (on multiple modes). Cardiac: Tachycardic, regular Abdomen: soft, NTND Extremities: warm, dry, no edema Neuro: sedated Data review: -- ABG: pH 7.16; pCO2 89; pO2 123; HCO3 25.2; BE 0.3 (improved from -9); %O2 Sat 99.7 -- Cr 3.10 -- Lytes Na 147 K 3.8 Ca 6.6 Mag 2.0 Phos 6.9 -- DDimer >1050 -- Lactic acid 1.8. Was 6.0 on presentation -- LFTs AST 3341 ALT 2868 Ammonia 101 -- Troponin 1.61 -- Micro / blood in process sputum 1+ GPC intracellular, speciation pending Legionella Negative Strep pneumo Negative Urine Negative 09/02 UA Negative at [facility] Flu A&B negative at [facility] MRSA positive Consults: Cardiology Procedures: Central line placement Significant diagnostic studies: 09/04 CXR - read pending. Prominent pulmonary vasculature. 09/04 TTE - mild to moderate concentric LVH LVEF 20-25% Severe global hypokinesis Severe hypokinesis to akinesis of the mid-apical myocardium Pulmonary artery HTN 44mmHg / CXR - hyperinflated lungfields without definite evidence of pneumonia / CT chest, abdomen, pelvis - moderate to severe centrilobar and paraseptal emphysema. Lungs otherwise clear. Avalos in superior prostatic urethra Treatments: Vent PCV PC 32 PEEP 8 RR 24 FiO2 40 Vasopressors Neosynephrine Dobutamine Heparin gtt (empiric) Abx Rocephin Azithromycin Zosyn Vancomycin IVF Hydration Disposition: Transfer to [facility] condition at discharge: Critical Summary took approximately 30 min
[2019-09-04] MEDS: Morphine INJ* 4 MG/ML 1 ML SYRINGE (NEW SYRINGE VERSION) IV PRN (18:17)
[2019-09-06 15:46] LABS: Submitting Laboratory Phone 6072744474; Venous/Capillary Venous
[2019-09-06 19:50] LABS: Mercury,Blood <1 ng/mL (0-9)
== END 2019-09-04 18:45 | disposition short-term general hospital (02) | DRG 871 ==
LOC: ICU 20:00
PROVIDERS: ADMIT Internal Medicine Critical Care Medicine; ATTEND Internal Medicine Critical Care Medicine
PROC: 5A1945Z Respiratory Ventilation, 24-96 Consecutive Hours (ICD-10-PCS; principal; 2019-09-02)
PROC: 05HY33Z Insertion of Infusion Device into Upper Vein, Percutaneous Approach (ICD-10-PCS; 2019-09-02)
DX: A41.9 Sepsis, unspecified organism (principal); R65.21 Severe sepsis with septic shock; J96.22 Acute and chronic respiratory failure with hypercapnia; J18.9 Pneumonia, unspecified organism; J96.21 Acute and chronic respiratory failure with hypoxia; J44.1 Chronic obstructive pulmonary disease with (acute) exacerbation; N17.9 Acute kidney failure, unspecified; E87.0 Hyperosmolality and hypernatremia; E87.2 Acidosis; I27.21 Secondary pulmonary arterial hypertension; E83.51 Hypocalcemia; E88.01 Alpha-1-antitrypsin deficiency; E11.9 Type 2 diabetes mellitus without complications; I25.10 Atherosclerotic heart disease of native coronary artery without angina pectoris; I10 Essential (primary) hypertension; E87.5 Hyperkalemia; E83.39 Other disorders of phosphorus metabolism; D64.9 Anemia, unspecified; Z99.81 Dependence on supplemental oxygen; F32.9 Major depressive disorder, single episode, unspecified; F41.9 Anxiety disorder, unspecified; I25.2 Old myocardial infarction; Z79.899 Other long term (current) drug therapy; Z82.5 Family history of asthma and other chronic lower respiratory diseases; Z82.49 Family history of ischemic heart disease and other diseases of the circulatory system; Z87.891 Personal history of nicotine dependence
CPT/HCPCS: 36415; 36600; 71045; 71250; 74176; 80048; 80053; 80202; 80307; 80320; 80329; 81003; 81015; 82140; 82300; 82436; 82570; 82803; 83605; 83655; 83735; 83825; 83919; 83930; 84100; 84133; 84300; 84484; 85025; 85027; 85379; 85730; 87040; 87070; 87077; 87086; 87186; 87205; 87641; 87899; 93306; 94002; 94003; 94640; A9270-GY; G0480; J0456; J0610; J0696; J1250; J1644; J2250; J2270; J2543; J2704; J2920; J3370; J3475; J7060